=== PATIENT | male | born 1985 | race Caucasian/White ===

== ENCOUNTER 2024-04-22 08:57 | Outpatient (OUT) | payer OTHER, SELFPAY ==
[2024-04-22 09:35] LABS: Estimated Average Glucose 103 mg/dL; Glycohemoglobin A1C 5.2 % (4.5-6.2)
[2024-04-22 09:44] LABS: Basophils Absolute Auto 0.1 10^3/uL (0.0-0.1); Eosinophils Absolute Auto 0.3 10^3/uL (0.0-0.7); Eosinophils Percent Auto 3.5 % (0.9-7.0); Hematocrit 46.2 % (42.0-54.0); Hemoglobin 15.5 g/dL (14.0-18.0); Immature Granulocytes Abs Auto 0.03 10^3/uL (0.00-0.03); Immature Granulocytes Pct Auto 0.3 % (0.0-0.5); Lymphocytes Absolute Auto 3.1 10^3/uL (1.2-3.8); Lymphocytes Percent Auto 34.9 % (20.5-60.0); Mean Corpuscular HGB Conc 33.5 g/dL (29.9-35.2); Mean Corpuscular Hemoglobin 29.3 pg (25.9-34.0); Mean Corpuscular Volume 87.3 fL (80.0-94.0); Mean Platelet Volume 10.4 fL (9.5-13.5); Monocytes Absolute Auto 0.6 10^3/uL (0.3-0.8); Monocytes Percent Auto 6.2 % (1.7-12.0); Neutrophils Absolute Auto 4.8 10^3/uL (1.4-6.5); Neutrophils Percent Auto 54.1 % (43.0-75.0); Platelet Count 333 10^3/uL (150-450); Red Blood Count 5.29 10^6/uL (4.70-6.10); Red Cell Distribution Width 12.5 % (11.0-15.0); White Blood Count 8.8 10^3/uL (4.0-11.0)
[2024-04-22 10:05] LABS: Alanine Aminotransferase 29 U/L (16-63); Albumin Globulin Ratio 1.2; Albumin Level 4.1 g/dL (3.4-5.0); Alkaline Phosphatase 99 U/L (46-116); Aspartate Amino Transferase 17 U/L (15-37); BUN Creatinine Ratio 15.5; Bilirubin Direct 0.1 mg/dL (0.0-0.2); Bilirubin Total 0.5 mg/dL (0.2-1.0); Carbon Dioxide 28.3 mmol/L (21.0-32.0); Chloride 105 mmol/L (98-107); Chol HDL Ratio 3.8; Cholesterol 203 mg/dL (<=200); Estimated GFR (African America >60 (>=60); Estimated GFR (Non-African Ame >60 (>=60); Globulin 3.4 g/dL; Glucose 100 mg/dL (74-106); HDL Cholesterol 54 mg/dL (40-60); Potassium 4.3 mmol/L (3.5-5.1); Sodium 142 mmol/L (136-145); Thyroid Stimulating Hormone 1.115 uIU/mL (0.358-3.740); Total Protein 7.5 g/dL (6.4-8.2); Triglycerides 66 mg/dL (<=150); VLDL CHOLESTEROL 13.2 mg/dL
== END 2024-04-22 08:58 | disposition home or self-care (01) ==
LOC: LAB 09:02
PROVIDERS: PCP Family Medicine; Visit Provider Family Medicine
DX: Z00.00 Encounter for general adult medical examination without abnormal findings (principal)
CPT/HCPCS: 36415; 80048; 80061; 80076; 83036; 84443; 85025

== ENCOUNTER 2024-05-23 18:57 | Emergency (ER) | payer OTHER, SELFPAY ==
[2024-05-23 19:03] VITALS: BP 158/85; PULSE 102; TEMP 36.8; O2SAT 99; BMI 30.9
--- NOTE | 2024-05-23 19:12 | ED_ITS ---
HPI HPI - Extremity Injury (Upper) General Chief Complaint: Wound/Laceration Stated Complaint: LT HAND MIDDLE FINGER INJURY Time Seen by Provider: 05/23/24 19:03 Mode of arrival: walk-in Limitations: no limitations History of Present Illness HPI narrative: This 39-year-old male who is right-hand dominant presents for evaluation of a laceration to the left lateral middle finger. The patient was cutting vegetable s for dinner and accidentally cut himself with a knife. He has an approximately 1.5 cm flap type laceration at the lateral aspect of the distal end of the middle finger. The laceration is lateral to but not involving his fingernail. He is neurovascularly intact. He does not know the date of his last tetanus shot. Related Data Home Medications ?Medication ?Instructions ?Recorded ?Confirmed albuterol sulfate 90 mcg/actuation 2 puff inhalation Q6H PRN 05/23/24 05/23/24 aerosol inhaler shortness of breath or wheezing alprazolam 0.5 mg tablet 0.5 mg PO BID PRN anxiety 05/23/24 05/23/24 atomoxetine 40 mg capsule 40 mg PO DAILY 05/23/24 05/23/24 atomoxetine 40 mg capsule 40 mg PO DAILY 05/23/24 05/23/24 (Strattera) montelukast 10 mg tablet 10 mg PO DAILY 05/23/24 05/23/24 omeprazole 40 mg capsule,delayed 40 mg PO DAILY 05/23/24 05/23/24 release Allergies Allergy/AdvReac Type Severity Reaction Status Date / Time Penicillins AdvReac Intermediate Rash Verified 05/23/24 19:03 Opioid HPI Opioid Management Most Recent Pain and Opioid Data: Last Pain Scale 5 05/23/24 19:15 Review of Systems ROS0 Status of ROS 10 or more systems reviewed and unremark able except as noted in history and below Exam Narrative Exam Narrative: Vital signs and Nursing Notes reviewed: Patient is mildly hypertensive and tachycardic, he is not hypoxic with pulse ox of 99% on room air General: Awake, alert, oriented, no acute distress, lying comfortably on the stretcher HEENT: Normocephalic atraumatic, mucous membranes are moist and pink, eyes are clear Extremities: Moving all extremities, approximately 1.5 cm semicircular flap type laceration lateral to the fingernail on the distal end of the left middle finger. He is neurovascularly intact. There is no active bleeding. Laceration abuts but does not involve the fingernail Skin: Normal in appearance without rash,pallor, petechiae or purpura Neuro: No focal deficits Constitutional Vital Signs, click to edit/add: Last Vital Signs Temp 98.2 F 05/23/24 19:03 Pulse 102 H 05/23/24 19:03 Resp 102 H 05/23/24 19:03 BP 158/85 H 05/23/24 19:03 Pulse Ox 99 05/23/24 19:03 O2 Del Method Room Air 05/23/24 19:03 Course Vital Signs Vital signs: Vital Signs Temperature 98.2 F 05/23/24 19:03 Pulse Rate 102 H 05/23/24 19:03 Respiratory Rate 102 H 05/23/24 19:03 Blood Pressure 158/85 H 05/23/24 19:03 Pulse Oximetry 99 05/23/24 19:03 Oxygen Delivery Method Room Air 05/23/24 19:03 Temperature 98.2 F 05/23/24 19:03 Pulse Rate 102 H 05/23/24 19:03 Respiratory Rate 102 H 05/23/24 19:03 Blood Pressure 158/85 H 05/23/24 19:03 Pulse Oximetry 99 05/23/24 19:03 Oxygen Delivery Method Room Air 05/23/24 19:03 MDM - Extremity Injury (Upper) MDM Narrative Medical decision making narrative: This 39-year-old male who is right-hand dominant presents for evaluation of a left middle finger laceration that he sustained at home while cutting vegetables. He is neurovascularly intact. Tetanus was updated and the laceration was closed with4, 4-0 Ethilon sutures. He tolerated procedure well. Discharge Plan Discharge Stand Alone Forms: Work/School Release, Portal Instructions Chief Complaint: Wound/Laceration Clinical Impression: Laceration of finger of left hand Patient Disposition: Home, Self-Care Time of Disposition Decision: 19:45 Condition: Good Prescriptions / Home Meds: No Action atomoxetine [Strattera] 40 mg capsule 40 mg PO DAILY omeprazole 40 mg capsule,delayed release(DR/EC) 40 mg PO DAILY alprazolam 0.5 mg tablet 0.5 mg PO BID PRN (Reason: anxiety) montelukast 10 mg tablet 10 mg PO DAILY atomoxetine 40 mg capsule 40 mg PO DAILY albuterol sulfate 90 mcg/actuation HFA aerosol inhaler 2 puff INHALATION Q6H PRN (Reason: shortness of breath or wheezing) Print Language: Nepali Instructions: Care For Your Stitches (ED), Finger Laceration (ED) Additional Instructions: Sutures can be removed in 10 to 12 days. Keep your hand covered with a Band-Aid and use bacitracin 1-2 times a day. Referrals: Thomas Chi MD [Primary Care Provider] - 1 week Procedures ED Procedure Instructions Procedures Procedures: Procedure note: Laceration repair; the left middle finger was infiltrated with 1% lidocaine after it was soaked in warm water and Hibiclens. When anesthesia was obtained, the laceration was closed with 4, 4-0 Ethilon sutures with good wound edge approximation. A bacitracin dressing was placed by the nursing staff. Suture care and wound care instructions were given to the patient and his female operations support analyst.
[2024-05-23] MEDS: LIDOCAINE HCL 1% 100 MG/10 ML MDV INJ (19:26)
[2024-05-23] MEDS: ADACEL DIPH,PERTUSS(ACELL),TET VAC/PF 0.5 ML ADULT SYRINGE IM (19:26)
--- OUTSIDE RECORDS SUMMARY | 2024-05-23 19:43 | XMS_ITS | CCD ---
Author Organization [facility] Care Team Providers Care Roundsman Name Role Phone THOMAS ZARAGOZA Primary Care THOMAS Hackett Consulting [place] Bo PA-C, Mike Aragon Attending Unavail able THOMAS ZARAGOZA Primary Care Unavailmanjinder Bo PA-C, Mike Aragon Attending Unavail able Burt Haque Attending Unavailable THOMAS ZARAGOZA Primary Care Burt Vivas Admitting Unavailable Jamie Klein Unavailable DR THOMAS ZARAGOZA Admitting Unavailable MILA, DR THOMAS Rojas Attending Unavailable DR THOMAS ZARAGOZA Primary Care Unavailable DR THOMAS ZARAGOZA Consulting Unavailable Linh Daley Unavailable Thomas Zaragoza MD Primary Care Provider [phone] THOMAS ZARAGOZA Attending Unavailable THOMAS ZARAGOZA Attending Unavailable Allergies Allergy Classification Reported Allergen(s) Allergy Type Date of Onset Reaction(s) Facility (2 sources) Penicillins; Translations: [penicillins] Propensity to adverse reactions to drug (disorder) [facility] Repository (3 sources) Penicillin; Translations: [penicillin] Drug Allergy [facility] Repository Medications Current Medications Medication Drug Class(es) Dates Sig (Normalized) Sig (Original) [id number] 200 actuat albuterol 0.09 mg/actuat metered dose inhaler (1 source) beta2-Adrenergic Agonist take 2 puff(s) by inhalation every four hours for wheezing albuterol HFA 90 mcg/act inhaler Inhale 2 puffs every 4 (four) hours if needed for wheezing 0 Active ALPRAZolam 0.5 mg oral tablet (4 sources) Benzodiazepine Start: 11-01-2023 take 1 tablet by mouth three times daily as needed ALPRAZolam (Xanax) 0.5 MG tablet Indications: Anxiety disorder, unspecified , Anxiety state (CMS/HCC) TAKE 1 TABLET BY MOUTH 3 TIMES A DAY NEEDED 60 tablet 2 11/01/2023 Active take 1 tablet by ziggy th three times daily as needed for anxiety ALPRAZolam XR (Xanax XR) 0.5 MG 24 hr tablet Take 0.5 mg by mouth 3 (three) times a day as needed for anxiety Do not crush, chew, or split. 0 Active take 1 tablet by ziggy th three times daily as needed ALPRAZolam 0.5 MG TAKE 1 TABLET BY MOUTH THREE TIMES A DAY NEEDED Oral for 20 Days Active celecoxib 200 mg oral capsule (2 sources) Nonsteroidal Anti-inflammatory Drug take 1 capsule by mouth in the morning celecoxib (CeleBREX) 200 MG capsule Take 200 mg by mouth in the morning and 200 mg before bedtime. 0 Active ciprofloxacin 3 mg/ml ophthalmic solution (1 source) Quinolone Antimicrobial Start: 2022 take 2 drop(s) into the eye(s) every four hours Ciprofloxacin HCl 0.3 % 2 drops into affected eye Ophthalmic every 4 hrs for 7 days Oct, Active cyclobenzaprine hydrochloride 10 mg oral tablet (1 source) Muscle Relaxant take 5 mg by mouth three times daily as needed for muscle spasms cyclobenzaprine (Flexeril) 10 MG tablet Take 5 mg by mouth 3 (three) times a day as needed for muscle spasms 0 Active fluticasone propionate 0.05 mg/actuat metered dose nasal spray (1 source) Corticosteroid take 2 spray(s) nasal route every twenty-four hours in the morning fluticasone (Allergy Moran 24 Hour) 50 MCG/ACT nasal spray Administer 2 sprays into each nostril in the morning. Shake gently. Before first use, prime pump. After use, clean tip and replace cap.. 0 Active montelukast 10 mg oral tablet (3 sources) Leukotriene Receptor Antagonist take 1 tablet by mouth at bedtime montelukast (Singulair) 10 MG tablet Take 10 mg by mouth at bedtime 0 Active [place] 3 Fish Oil (2 sources) [place] 3 Fish Oil one oral daily Active omeprazole 40 mg delayed release oral capsule (3 sources) Proton Pump Inhibitor Start: 2023 take 1 capsule by mouth once daily omeprazole (PriLOSEC) [address] capsule Indications: Gastroesophageal reflux disease without esophagitis TAKE 1 CAPSULE BY MOUTH EVERY DAY 90 capsule 3 10/06/2023 Active take 1 capsule by mouth once mo ly Omeprazole 40 MG 1 capsule 30 minutes before morning meal Orally Once a day Active Completed/Discontinued Medications Medication Drug Class(es) Dates Sig (Normalized) Sig (Original) Ketorolac (2 sources) Nonsteroidal Anti-inflammatory Drug, Cyclooxygenase Inhibitor Start: 08-23-2017 Toradol per 15 mg Aug, 60 mg Problems Problem Classification Problem Date Documented Date Episodic/Chronic Anxiety disorders (2 sources) Anxiety disorder; Translations: [Anxiety disorder, unspecified] 10-31-2023 Chronic Inflammation; infection of eye (except that caused by tuberculosis or sexually transmitteddisease) (1 source) Other mucopurulent conjunctivitis, bilateral Episodic Spondylosis; intervertebral disc disorders; other back problems (5 sources) Displacement of cervical intervertebral disc; Translations: [Other cervical disc displacement, unspecified cervical region] Onset: 02-04-2022 Resolved: 02-04-2022 Chronic Results Test Name Value Interpretation Reference Range Facility CBC AUTO DIFFon 11-09-2022 BASO # 0.1 103/ul Normal 0.0-0.1 [facility] Comment on above: Performed By: #### C BC #### [facility] [address] [place] [address] Dr. Tato Siegel Basophils/100 WBC (Bld) 0.7 % Normal 0.2-2.0 [facility] Comment on above: Performed By: #### C BC #### [facility] [address] [place] [address] Dr. Tato Siegel EO # 0.2 103/ul Normal 0.0-0.7 [facility] Comment on above: Performed By: #### C BC #### [facility] [address] [place] [address] Dr. Tato Siegel Eosinophils/100 WBC (Bld) 2.2 % Normal 0.9-7.0 [facility] Comment on above: Performed By: #### C BC #### [facility] [address] [place] [address] Dr. Tato Siegel Erythrocyte distribution width (RBC) [Ratio] 12.5 % Normal 11.0-15.0 [facility] Comment on above: Performed By: #### C BC #### [facility] [address] [place] [address] Dr. Tato Siegel Hematocrit (Bld) [Volume fraction] 47.1 % Normal 42.0-54.0 [facility] Comment on above: Performed By: #### C BC #### [facility] [address] [place] [address] Dr. Tato Siegel Hemoglobin (Bld) [Mass/Vol] 16.0 g/dL Normal 14.0-18.0 [facility] Comment on above: Performed By: #### C BC #### [facility] [address] [place] [address] Dr. Tato Siegel IG # 0.05 10e3/ul Critically high 0.00-0.03 [facility] Comment on above: Performed By: #### C BC #### [facility] [address] [place] [address] Dr. Tato Siegel IG % 0.5 % Normal 0.0-0.5 [facility] Comment on above: Performed By: #### C BC #### [facility] [address] [place] [address] Dr. Tato Siegel LYMPH # 3.8 103/ul Normal 1.2-3.8 [facility] Comment on above: Performed By: #### C BC #### [facility] [address] [place] [address] Dr. Tato Siegel Lymphocytes/100 WBC (Bld) 35.4 % Normal 20.5-60.0 [facility] Comment on above: Performed By: #### C BC #### [facility] [address] [place] [address] Dr. Tato Siegel MANUAL DIFF REQ NO Normal [facility] Comment on above: Performed By: #### C BC #### [facility] [address] [place] [address] Dr. Tato Siegel MCH (RBC) [Entitic mass] 28.4 pg Normal 25.9-34.0 [facility] Comment on above: Performed By: #### C BC #### [facility] [address] [address] [address] Tato Siegel MCHC (RBC) [Mass/Vol] 34.0 g/dL Normal 29.9-35.2 [facility] Comment on above: Performed By: #### C BC #### [facility] [address] [address] [address] Tato Siegel MCV (RBC) [Entitic vol] 83.7 fL Normal 80.0-94.0 [facility] Comment on above: Performed By: #### C BC #### [facility] [address] [place] [address] Dr. Tato Siegel MONO # 0.7 103/ul Normal 0.3-0.8 [facility] Comment on above: Performed By: #### C BC #### [facility] [address] [place] [address] Dr. Tato Siegel Monocytes/100 WBC (Bld) 6.9 % Normal 1.7-12.0 [facility] Comment on above: Performed By: #### C BC #### [facility] [address] [place] [address] Dr. Tato Siegel NEUT # 5.8 103/ul Normal 1.4-6.5 [facility] Comment on above: Performed By: #### C BC #### [facility] [address] [place] [address] Dr. Tato Siegel Neutrophils/100 WBC (Bld) 54.3 % Normal 43.0-75.0 [facility] Comment on above: Performed By: #### C BC #### [facility] [address] [address] [address] Tato Siegel Platelet mean volume (Bld) [Entitic vol] 9.8 fL Normal 9.5-13.5 [facility] Comment on above: Performed By: #### C BC #### [facility] [address] [place] [address] Dr. Tato Siegel PLT 385 103/ul Normal 150-450 [facility] Comment on above: Performed By: #### C BC #### [facility] [address] [place] [address] Dr. Tato Siegel RBC 5.63 106/ul Normal 4.70-6.10 [facility] Comment on above: Performed By: #### C BC #### [facility] [address] [address] [address] Tato Siegel WBC 10.7 103/ul Normal 4.0-11.0 [facility] Comment on above: Performed By: #### C BC #### [facility] [address] [address] [address] Tato Siegel GLYCOHEMOGLOBIN A1Con 2022 ADA RECOMMENDATION SEE BELOW Normal [facility] Comment on above: Result Comment: ADA RECOMMENDED LIMIT 4.0 - 6.0 ADA THERAPEUTIC TARGET < 7.0 ACTION SUGGESTED > 7.0 Performed By: #### A 1C #### [facility] [address] [place] [address] Dr. Tato Siegel Glucose [Mass/Vol] 111 mg/dL Normal [facility] Comment on above: Performed By: #### A 1C #### [facility] [address] [place] [address] Dr. Tato Siegel HbA1c (Bld) [Mass fraction] 5.5 % Normal 4.5-6.2 [facility] Comment on above: Performed By: #### A 1C #### [facility] [address] [place] [address] Dr. Tato Siegel LIPID PROFILEon 11-09-2022 CHOL-HDL RATIO NORM SEE BELOW Normal [facility] Comment on above: Result Comment: 3.3 - 4.4 LOW RISK 4.4 - 7.1 AVERAGE RISK 7.1 - 11.0 MODERATE RISK >11.0 HIGH RISK Performed By: #### T SH, BMP, LIVER, LIPID #### [facility] [address] [place] [address] Dr. Tato Siegel Cholesterol [Mass/Vol] 220 mg/dL Critically high <=200 [facility] Comment on above: Performed By: #### T SH, BMP, LIVER, LIPID #### [facility] [address] [address] [address] Tato Siegel Cholesterol in HDL [Mass/Vol] 43 mg/dL Normal 40-60 [facility] Comment on above: Performed By: #### T SH, BMP, LIVER, LIPID #### [facility] [address] [address] [address] Tato Siegel Cholesterol in LDL [Mass/Vol] 147.2 mg/dL Normal [facility] Comment on above: Performed By: #### T SH, BMP, LIVER, LIPID #### [facility] [address] [address] [address] Tato Siegel Cholesterol.total/Ch olesterol in HDL [Mass ratio] 5.1 {ratio} Normal [facility] Comment on above: Performed By: #### T SH, BMP, LIVER, LIPID #### [facility] [address] [address] [address] Tato Siegel HDL NORMAL > or = 60 mg/dl - LO W CARDIOVASCULAR RISK <40 mg/dl - HIGH CARDIOVASCULAR RISK Normal [facility] Comment on above: Performed By: #### T SH, BMP, LIVER, LIPID #### [facility] [address] [address] [address] Tato Siegel LDL CALC NORMAL SEE BELOW Normal [facility] Comment on above: Result Comment: <100 mg/dl OPTIMAL 100 - 129 mg/dl NEAR OR ABOVE OPTIMAL 130 - 159 mg/dl BORDERLINE HIGH 160 - 189 mg/dl HIGH >190 mg/dl VERY HIGH Performed By: #### T SH, BMP, LIVER, LIPID #### [facility] [address] [address] [address] Tato Siegel Triglyceride [Mass/Vol] 149 mg/dL Normal <=150 [facility] Comment on above: Performed By: #### T SH, BMP, LIVER, LIPID #### [facility] [address] [place] [address] Dr. Tato Siegel VLDL CALC 29.8 mg/dL Normal [facility] Comment on above: Performed By: #### T SH, BMP, LIVER, LIPID #### [facility] [address] [address] [address] Tato Siegel LIVER PROFILEon 11-09-2022 Albumin [Mass/Vol] 4.4 g/dL Normal 3.4-5.0 [facility] Comment on above: Performed By: #### T SH, BMP, LIVER, LIPID #### [facility] [address] [address] [address] Tato Siegel Albumin/Globulin [Mass ratio] 1.1 {ratio} Normal [facility] Comment on above: Performed By: #### T SH, BMP, LIVER, LIPID #### [facility] [address] [address] [address] Tato Siegel ALP [Catalytic activity/Vol] 103 U/L Normal 46-116 [facility] Comment on above: Performed By: #### T SH, BMP, LIVER, LIPID #### [facility] [address] [place] [address] Dr. Tato Siegel ALT [Catalytic activity/Vol] 39 U/L Normal 16-63 [facility] Comment on above: Performed By: #### T SH, BMP, LIVER, LIPID #### [facility] [address] [place] [address] Dr. Tato Siegel AST [Catalytic activity/Vol] 19 U/L Normal 15-37 [facility] Comment on above: Performed By: #### T SH, BMP, LIVER, LIPID #### [facility] [address] [place] [address] Dr. Tato Siegel BILI, CONJUGATED 0.1 mg/dL Normal 0.0-0.2 [facility] Comment on above: Performed By: #### T SH, BMP, LIVER, LIPID #### [facility] [address] [address] [address] Tato Siegel Bilirubin [Mass/Vol] 0.4 mg/dL Normal 0.2-1.0 [facility] Comment on above: Performed By: #### T SH, BMP, LIVER, LIPID #### [facility] [address] [address] [address] Tato Siegel Globulin (S) [Mass/Vol] 3.9 g/dL Normal [facility] Comment on above: Performed By: #### T SH, BMP, LIVER, LIPID #### [facility] [address] [address] [address] Tato Siegel Protein [Mass/Vol] 8.3 g/dL Critically high 6.4-8.2 [facility] Comment on above: Performed By: #### T SH, BMP, LIVER, LIPID #### [facility] [address] [address] [address] Tato Siegel PROF CHEM 8 (BAS METB)on Anion gap [Moles/Vol] 13.5 mmol/L Normal [facility] Comment on above: Performed By: #### T SH, BMP, LIVER, LIPID #### [facility] [address] [place] [address] Dr. Tato Siegel Calcium [Mass/Vol] 9.4 mg/dL Normal 8.5-10.1 [facility] Comment on above: Performed By: #### T SH, BMP, LIVER, LIPID #### [facility] [address] [place] [address] Dr. Tato Siegel Chloride [Moles/Vol] 103 mmol/L Normal 98-107 [facility] Comment on above: Performed By: #### T SH, BMP, LIVER, LIPID #### [facility] [address] [place] [address] Dr. Tato Siegel CO2 [Moles/Vol] 25.6 mmol/L Normal 21.0-32.0 [facility] Comment on above: Performed By: #### T SH, BMP, LIVER, LIPID #### [facility] [address] [place] [address] Dr. Tato Siegel Creatinine [Mass/Vol] 0.86 mg/dL Normal 0.70-1.30 [facility] Comment on above: Performed By: #### T SH, BMP, LIVER, LIPID #### [facility] [address] [place] [address] Dr. Tato Siegel EGFR-AF CYPRIOT >60 Normal >=60 [facility] Comment on above: Performed By: #### T SH, BMP, LIVER, LIPID #### [facility] [address] [address] [address] Tato Siegel EGFR-NON AF CYPRIOT >60 Normal >=60 [facility] Comment on above: Performed By: #### T SH, BMP, LIVER, LIPID #### [facility] [address] [address] [address] Tato Siegel Glucose [Mass/Vol] 87 mg/dL Normal 74-106 [facility] Comment on above: Performed By: #### T SH, BMP, LIVER, LIPID #### [facility] [address] [address] [address] Tato Siegel Potassium [Moles/Vol] 4.1 mmol/L Normal 3.5-5.1 [facility] Comment on above: Performed By: #### T SH, BMP, LIVER, LIPID #### [facility] [address] [address] [address] Tato Siegel Sodium [Moles/Vol] 138 mmol/L Normal 136-145 [facility] Comment on above: Performed By: #### T SH, BMP, LIVER, LIPID #### [facility] [address] [address] [address] Tato Siegel Urea nitrogen [Mass/Vol] 14.0 mg/dL Normal 7.0-18.0 [facility] Comment on above: Performed By: #### T SH, BMP, LIVER, LIPID #### [facility] [address] [address] [address] Tato Siegel Urea nitrogen/Creatinine [Mass ratio] 16.3 mg/mg Normal [facility] Comment on above: Performed By: #### T SH, BMP, LIVER, LIPID #### [facility] [address] [address] [address] Tato Siegel TSHon 11-09-2022 TSH 1.333 uIU/mL Normal 0.358-3.740 [facility] Comment on above: Performed By: #### T SH, BMP, LIVER, LIPID #### [facility] [address] [address] [address] Tato Siegel Neurosurgery Office/Clinic N oteon 10-20-2021 Neurosurgery Office/Clinic Note Chief Complaint Patient here for neck pain History of Present Illness The purpose of this visit is to review the cervical mri and discuss treatment. Left arm pain and numbness and weakness continues. 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 No injury. Went to ER 09/21/21, given methylprednisolone injection and Medrol dose pack, no help. Went to PCP, taking cyclobenzaprine and nabumetone. Saw PT 09/24/21, referred here with left triceps weakness. Two weeks ago difficulty holding and using utensils on the left. Using therapy putty, seems to help with strength Has soft collar on, prescribed by PT, states helping his symptoms slightly No symptoms on right, no LE symptoms, no bladder or bowel issues. No diagnostic imaging Conservative treatment: Medrol pack, cyclobenzaprine, nabumetone PT x 1 visit, traction (made symptoms worse) Review of Systems General Weakness: Yes Cardiovascular EENMT Gastrointestinal Genitourinary Hematologic/Lymphatic Musculoskeletal Back pain: No Joint pain: Yes Joint stiffness: Yes Neurological Numbness: Yes Psychiatric Respiratory Skin Physical Exam Vitals & Measurements BP: 140/88 HT: 191 cm WT: 118.4 kg WT: 118.4 kg (Dosing) BMI: 32.46 Additional Vitals No qualifying data available. General: Alert and oriented, well nourished, no acute distress Eye: PERRL, EOMI, normal conjunctiva HENT: Normocephalic, clear tympanic membranes, normal hearing, moist oral mucosa, no scleral icterus, no sinus tenderness Neck: Supple, non-tender, no carotid bruits, no JVD, no lymphadenopathy Lungs: Clear to auscultation and percussion, non-labored respiration Heart: Normal rate, regular rhythm, no murmur, gallop or edema Abdomen: Soft, non-tender, non-distended, normal bowel sounds, no masses]. Musculoskeletal: [Normal range of motion and strength, no tenderness or swelling Skin: Skin is warm, dry and pink, no rashes or lesions Psychiatric: Cooperative, appropriate mood and affect Neurologic: EOMI, PERRLA, TML, FS, No drift 5/5 mae UE strength except 4+ left tricep 5/5 mae LE strength 2+ UE reflexes except 1+ left tri 2+ LE reflexes Clonus absent pos spurling sign on left 1. Cervical radiculopathy 2. Neck pain without injury Assessment: 1. neck pain and left arm pain, numbness and left tricep weakness 2. cervical mri: C6-C7: There is a left lateral recess and left foraminal disc extrusion measuring 5 mm in AP dimension,, which is on a backdrop of broad-based left paracentral and left foraminal disc bulge, which impinges on the left C8 nerve root within the left lateral recess. There is no C7 neural impingement. There is very mild rightward mass effect of the adjacent thecal sac. There is no cord compression. There is no myelomalacia. 3. cervical flex ex: no intersegmental instability 4. bmi 32.5 Plan: I recommend C6-7 ACDFF. Described risks included bleeding, infection, neurological injury, spinal cord injury, stroke, c5 palsy, csf leak, , medical complication, vocal change, swallowing difficulty, ptosis, hardware failure, continued pain and numbness, and need for further procedures or surgeries. He would like to proceed with surgery. Time Spent with the Patient I have personally spent 30 minutes on this date, directly related to today's patient visit, including pre and post visit work, for this date of service. Time listed does not include time spent on separately billable services. Problem List/Past Medical History Ongoing No qualifying data Historical Depression screening Extrinsic asthma without status asthmaticus Fall risk VICKI - Generalised anxiety disorder GERD without esophagitis Obesity Physical examination Rhinitis due to pollen allergy Procedure/Surgical History KNEE ARTHROSCOPY/SURGERY Medications ALPRAZolam 0.5 mg oral tablet, 0.5 mg= 1 tabs, Oral, TID celecoxib 200 mg oral capsule cyclobenzaprine 10 mg oral tablet, Not taking fluticasone 50 mcg/inh nasal spray montelukast 10 mg oral tablet, 10 mg= 1 tabs, Oral, Daily nabumetone 500 mg oral tablet, Not taking omeprazole 40 mg oral delayed release capsule, 40 mg= 1 caps, Oral, Daily ProAir HFA 90 mcg/inh inhalation aerosol, 2 puffs, q6hr, Not taking Allergies penicillins (Hives) Social History Alcohol Current Substance Abuse Denies All Tobacco Never (less than 100 in lifetime) Use:. Family History Diabetes: Mother. Hypertension: Mother and Father. Lung disease: Father. Diagnostic Results (10/07/2021 11:31 EST MRI Spine Cervical w/o Contrast) REPORT MR CERVICAL SPINE CLINICAL HISTORY:Acute cervical spine pain. Radiculopathy. Myelopathy. COMPARISON:None. CORRELATION: None. TECHNIQUE: T1, T2 and STIR sequences of the cervical spine was performed in the sagittal pl (more content not included)... Normal [facility] MRI Spine Cervical w/o Contr rahat 10-07-2021 MRI Spine Cervical w/o Contrast MR CERVICAL SPINE CLINICAL HISTORY:Acute cervical spine pain. Radiculopathy. Myelopathy. COMPARISON:None. CORRELATION: None. TECHNIQUE: T1, T2 and STIR sequences of the cervical spine was performed in the sagittal plane. T2-weighted sequences of the cervical spine with plain performed in the axial plane. No contrast was administered. CONTRAST:None. FINDINGS: 7 cervical vertebrae are visualized. There is maintenance of the cervical lordotic curvature. The vertebral body heights and spinal alignment are maintained. There is no acute fracture or spondylolisthesis. The intervertebral discs are preserved. The craniocervical junction and atlantoaxial joints are maintained. The bone marrow is normal. The visualized brainstem and cerebellum are unremarkable. The visualized spinal cord and brainstem is unremarkable. The prevertebral soft tissue is within normal limits. C2-C3: Normal. C3-C4: Normal. C4-C5: Normal. C5-C6: Normal. C6-C7: There is a left lateral recess and left foraminal disc extrusion measuring 5 mm in AP dimension,, which is on a backdrop of broad-based left paracentral and left foraminal disc bulge, which impinges on the left C8 nerve root within the left lateral recess. There is no C7 neural impingement. There is very mild rightward mass effect of the adjacent thecal sac. There is no cord compression. There is no myelomalacia. C7-T1: Normal. IMPRESSION: Left foraminal and left lateral recess disc extrusion at C6-C7, superimposed on a broad-based left paracentral and foraminal disc bulge, which impinges on the left C8 nerve root within the left lateral recess. No C7 neural impingement. There is very mild rightward mass effect on the thecal sac. No cord compression or myelomalacia. Final Dictated by: Ava Stallings DO Dictated DT/TM: 10/07/2021 12:12 pm Signed by: Ava Stallings DO Signed (Electronic Signature): 10/07/2021 12:25 pm (If Report Is Signed, Electronically Signed in Other Vendor System) Normal [facility] Neurosurgery Office/Clinic N oteon 10-01-2021 Neurosurgery Office/Clinic Note Chief Complaint Patient states being seen for neck into shoulder blades. 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 No injury. Went to ER 09/21/21, given methylprednisolone injection and Medrol dose pack, no help. Went to PCP, taking cyclobenzaprine and nabumetone. Saw PT 09/24/21, referred here with left triceps weakness. Two weeks ago difficulty holding and using utensils on the left. Using therapy putty, seems to help with strength Has soft collar on, prescribed by PT, states helping his symptoms slightly No symptoms on right, no LE symptoms, no bladder or bowel issues. No diagnostic imaging Conservative treatment: Medrol pack, cyclobenzaprine, nabumetone PT x 1 visit, traction (made symptoms worse) Review of Systems General Adult ROS Fatigue: Yes Weakness: Yes Cardiovascular Chest pain/pressure: Yes EENMT Hearing loss: No, but has some tinnitus he relates to the new medication prescribed Vision Changes: No Gastrointestinal Abdominal pain: No Constipation: No Diarrhea: No Heartburn: No Nausea: No Genitourinary Frequency: No Urgency: No Hematologic/Lymphatic Musculoskeletal Other Musculoskeletal: Yes Neurological Numbness: Yes Psychiatric Anxiety: Yes Depression: No Respiratory Cough: No Shortness_of_breath: No Snoring: No Wheezing: No Skin Rash: No Physical Exam Vitals & Measurements HR: 68 (Peripheral) BP: 130/76 HT: 191 cm WT: 117.2 kg WT: 117.2 kg (Dosing) BMI: 32.13 BMI: 32.13 Additional Vitals BP Position/Location: Sitting, Left arm General: [Alert and oriented, well nourished, no acute distress]. Eye: [EOMI, normal conjunctiva]. HENT: [Normocephalic, normal hearing, moist oral mucosa, no scleral icterus]. Neck: [Supple, non-tender, no lymphadenopathy]. Lungs: [Clear to auscultation, non-labored respiration]. Heart: [Normal rate, regular rhythm, no murmur, gallop or edema]. Abdomen: [Soft, non-tender, non-distended]. Musculoskeletal: [Normal range of motion]. Skin: [Skin is warm, dry and pink, no rashes or lesions]. Neurologic: [Awake, alert, and oriented X3, CN II-XII intact]. Psychiatric: [Cooperative, appropriate mood and affect]. Strength 5/5 lower extremities Strength 5/5 upper extremities Sensation slightly diminished left triceps, dorsal forearm, otherwise intact to light touch + Spurling test on the left No Arnold's Patellar reflexes brisk, no clonus Remaining reflexes 2+ Gait normal Assessment/Plan 1. Cervical radiculopathy 2. Neck pain without injury Plan: MRI cervical spine without contrast Follow up with us when MRI completed Concern for disc herniation given symptoms, HPI. Also concern that he had difficulty using utensils on the left initially, although this has improved. Will see him back in the office as soon as MRI complete Time Spent with the Patient I have personally spent 45 minutes on this date, directly related to today's patient visit, including pre and post visit work, for this date of service. Time listed does not include time spent on separately billable services. Problem List/Past Medical History Ongoing No qualifying data Historical Depression screening Extrinsic asthma without status asthmaticus Fall risk VICKI - Generalised anxiety disorder GERD without esophagitis Obesity Physical examination Rhinitis due to pollen allergy Procedure/Surgical History KNEE ARTHROSCOPY/SURGERY Medications ALPRAZolam 0.5 mg oral tablet, 0.5 mg= 1 tabs, Oral, TID cyclobenzaprine 10 mg oral tablet fluticasone 50 mcg/inh nasal spray montelukast 10 mg oral tablet, 10 mg= 1 tabs, Oral, Daily nabumetone 500 mg oral tablet omeprazole 40 mg oral delayed release capsule, 40 mg= 1 caps, Oral, Daily ProAir HFA 90 mcg/inh inhalation aerosol, 2 puffs, q6hr Allergies penicillins (Hives) Social History Alcohol Current Substance Abuse Denies All Tobacco Never (less than 100 in lifetime) Use:. Family History Diabetes: Mother. Hypertension: Mother and Father. Lung disease: Father. Electronically signed by ___ Mike Bo PA-C 10/01/21 12:24 EST [facility] Provider Letteron 10-01-2021 Provider Letter (Inserted Image. Yelitza ble to display) Thomas Zaragoza MD [address] [place] [address] Re: Arlyn Garvin Date of Visit: 10/01/2021 Dear Thomas Zaragoza, Thank you for your referral and allowing me to contribute to the care of your patient: Arlyn Garvin Attached is my office note where you will find my assessment and recommendations from our encounter. My office?s contact information: [facility] [address], [phone] Let me know if you have any questions or concerns. Sincerely, MILKA Louise Providers: The following document(s) were included in the letter: October 01, 2021 09:29:04 EST - (10/01/2021) Neurosurgery Office Visit Note [facility] Vital Signs Date Time Vital Sign Value Performing Clinician Facility 10-28-2022 10:25-0500 Body height 193.04 cm Linh Daley Other [facility] Other 10-28-2022 10:25-0500 Body mass index (BMI) [Ratio] 32.5 kg/m2 Linh Daley Other [facility] Other 10-28-2022 10:25-0500 Body temperature 98 [degF] Linh Daley Other [facility] Other 10-28-2022 10:25-0500 Body weight 121.11 kg Linh Daley Other [facility] Other 10-28-2022 10:25-0500 Respiratory rate 18 /min Linh Daley Other [facility] Other 10-28-2022 10:25-0500 SaO2% (BldA) [Mass fraction] 95 % Linh Daley Other [facility] Other 02-04-2022 15:00-0400 Body height 193.04 cm Jamie Grahamchkii Other [facility] Other 02-04-2022 15:00-0400 Body mass index (BMI) [Ratio] 32.5 kg/m2 Jamie Elschiki Other [facility] Other 02-04-2022 15:00-0400 Body weight 121.11 kg Jamie Klein Other [facility] Other Encounters Encounter Date Encounter Type Care Provider Facility Start: 05-10-2024 End: 05-10-2024 ambulatory THOMAS ZARAGOZA Not Available Start: 11-17-2023 End: 11-17-2023 ambulatory THOMAS ZARAGOZA Not Available Start: 10-31-2023 Refill Thomas Black Work Phone: [facility] Comment on above: Anxiety disorder, un specified; Anxiety state (CMS/[facility]) Start: 11-13-2022 Encounter for genera l adult medical examination without abnormal findings DR THOMAS ZARAGOZA [facility] Start: 11-09-2022 End: 11-10-[address] THOMAS ZARAGOZA Facility:[facility] Start: 11-09-2022 End: 11-10-2022 Encounter for general adult medical examination without abnormal findings DR THOMAS ZARAGOZA Facility:[facility] Start: 10-28-2022 End: 10-28-2022 ambulatory Linh Daley Other [facility] Other Start: 10-28-2022 Office outpatient vi sit 15 minutes Linh Daley [facility] Start: 02-04-2022 End: 02-04-2022 ambulatory Jamie Klein Other [facility] Other Start: 02-04-2022 Office outpatient ne w 45 minutes Jamie Klein [facility] Start: 10-20-2021 ambulatory Burt Haque Faci lity:[facility] Start: 10-20-2021 End: 10-21-2021 ambulatory THOMAS ZARAGOZA Facility:[facility] Start: 10-07-2021 End: 10-08-2021 [facility] Plan of Treatment Date Care Activity Detail Author Start: 11-17-2023 End: 11-17-2023 Patient encounter procedure 11/17/2023 7:15 AM EST Office Visit [facility] [address] [place] [id number] Thomas Zaragoza MD [address] [place] [phone] [facility] Start: 05-21-2023 Influenza vaccination Influenza Vacc ine (#1) [facility] Immunizations Immunization Date Immunization Notes Care Provider Fa cility 08-31-2022 influenza virus vacc ine, unspecified formulation Thomas Zaragoza MD Work Phone: [facility] Payers Date Payer Category Payer Unknown 1985 Unknown [id number] [id number]. [id number] 1987 Unknown [id number] 2.16. [id number] 1987 Unknown [id number] 2.16. [id number] 1987 Unknown [id number] [id number] 1987 Unknown [id number] [id number] [id number] 1987 Unknown [id number] [id number] 1959 Unknown [id number] Social History Date Type Detail Facility Unknown if ever smoked [facility] Other Start: 10-08-2023 Sex Assigned At [facility] Other Start: 10-08-2023 Tobacco smoking stat [facility] Never smoked tobacco [facility] Start: 10-08-2023 History of Social function [facility] Healthcare Start: 1985 Sex Assigned At Not on file [facility] Evaluation note 10-28-2022 Note Date & Type Note Facility 10-28-2022 Evaluation note Encounter Date Diagnosis Assessment Notes Oct, Hi-Nella eye disease of both eyes (ICD-10 - H10.023) Pt to take meds as prescribed to affected eye/s. Pt to use warm compress as directed. Advised good hand washing. Wash pillow cases. Pt advised to avoid close contact with others due to the contagiousness of this. Pt not to wear contacts for the next week. Glasses only. Throw out old contacts. Pt to f/u with pcp as needed for persistent or worsening symptoms. Pt understood and agreed to treatment plan. [facility] Other Evaluation note 02-04-2022 Note Date & Type Note Facility 02-04-2022 Evaluation note Encounter Date Diagnosis Assessment Notes January, Herniation of intervertebral disc at C6-C7 level (ICD-10 - M50.223) I have reviewed all imaging face to face with the patient and discussed management options with the patient extensively. Most of the visit was spent in counseling. He had been recommended to have some sort of cage type fusion operation back in the beginning of all of this. My recommendation would be that since he has made significant improvement it becomes a [id number] decision, and If he feels that he can tolerate and handle his current discomfort and he can follow this conservatively, he should. However if he were to either have recurrent or residual symptoms or wish to have surgical intervention for this I do not believe a fusion would be the best option for him given his age situation and the quality of the remaining spine. I basically feel he should have an anterior cervical discectomy and placement of cervical artificial disc or arthroplasty. This would preserve motion and reduce the risk of adjacent level disease by 60 to 70% which in a 37-year-old is fairly significant over the course of his life. [facility] Other Clinical Note 10-21-2021 Note Date & Type Note Facility 10-21-2021 Note Procedure: Flexion a nd extension and swimmer's lateral views of the cervical spine. Clinical History: Neck pain, left arm and finger numbness Comparison: None, MRI cervical spine 10/07/2021 Findings: Bones: No two view radiographic evidence for acute fracture, subluxation, or aggressive abnormality. C7 and T1 are not well visualized at flexion or extension, no subluxation at the swimmer's view. Intervertebral discs: Mild narrowing and endplate findings at C6-7. Facet joints: Grossly intact. Soft tissues: Unremarkable. IMPRESSION: 1. No subluxation. 2. Mild chronic degenerative disc disease at C6-7. Final Dictated by: Ant Denise MD Dictated DT/TM: 10/21/2021 12:17 pm Signed by: Ant Denise MD Signed (Electronic Signature): 10/21/2021 12:22 pm (If Report Is Signed, Electronically Signed in Other Vendor System) [facility] Evaluation note Note Date & Type Note Facility Evaluation note Diagnosis Anxiety disorder, unspecified Anxiety state ([facility]) Anxiety state, unspecified documented in this encounter [facility] History general Narrative - Reported Note Date & Type Note Facility History general Narrative - Reported Type Medical History Anxiety Medical History allergy induced asthma Surgical History knee arthroscopy [facility] Other Summary Purpose Family History No Family History Records FoundNo Family History Records FoundNo Family History Records Found Advance Directives No Advanced Directives Records FoundNo Advanced Directives Records FoundNo Advanced Directives Records Found Additional Source Comments (unrecognized sect ion and content) No Status Records FoundNo Status Records FoundNo Status Records Found INFORMATION SOURCE (unrecogn ized section and content) DATE CREATED AUTHOR 10/21/2021 [facility] DATE CREATED AUTHOR AUTHOR'S ORGANIZ ATION 11/14/2022 [facility] DATE CREATED AUTHOR AUTHOR'S ORGANIZ ATION 05/11/[address] [facility] d[facility] Special[facility] EPIC REASON FOR VISIT (unrecogniz ed section and content) Reason Comments Med Refill Care Teams (unrecognized sec tion and content) [place] Relationship Specialty Start Date End Date Thomas Zaragoza MD [address] [place] [phone] PCP - General Family Medicine 10/08/23 FOR RECORDS PERTAINING TO PATIENTS WHO ARE OR HAVE BEEN ENROLLED IN A CHEMICAL DEPENDENCY/SUBSTANCEABUSE PROGRAM, SOME INFORMATION MAY BE OMITTED. This clinical summary was aggregated from multiple sources. Caution should be exercised in using it in the provision of clinical care. This summary normalizes information from multiple sources, and as a consequence, information in this document may materially change the coding, format and clinical context of patient data. In addition, data may be omitted in some cases. CLINICAL DECISIONS SHOULD BE BASED ON THE PRIMARY CLINICAL RECORDS. [facility]. provides no warranty or guarantee of the accuracy or completeness of information in this document.
[2024-05-23] MEDS: BACITRACIN 0.9 GM PACKET 1 PACKET TOPICAL (19:52)
== END 2024-05-23 20:00 | disposition home or self-care (01) ==
LOC: ER 19:40
PROVIDERS: Emergency Provider Emergency Medicine; PCP Family Medicine
DX: S61.213A Laceration without foreign body of left middle finger without damage to nail, initial encounter (principal); Z23 Encounter for immunization; W26.0XXA Contact with knife, initial encounter
CPT/HCPCS: 12001; 90471; 90715; 99283

== ENCOUNTER 2025-04-18 11:09 | Outpatient (OUT) | payer OTHER, SELFPAY ==
--- OUTSIDE RECORDS SUMMARY | 2025-04-18 08:30 | XMS_ITS | Encounter Summary ---
Author Organization [facility] Address [address] [place] [address] Care Team Providers Care Learning Support Teacher Name Role Phone Thomas Chi MD Primary Care Provider [phone] Reason for Visit * Reason Comments Annual Exam wellness Encounter Details Date Type Department Care Team (Late st Contact Info) Description 04/18/2025 8:30 AM EDT Office Visit [facility] [address] [place] [address] Thomas Chi MD [address] [place] [address] Annual physical exam (Primary Dx) Social History Tobacco Use Types Packs/Day Years Used Date Smoking Tobacco: Never Smokeless Tobacco: Never Social Connection and Isolation Panel [NHANES] A nswer Date Recorded In a typical week, how many times do you talk on the phone with family, friends, or neighbors? Three times a week 11/15/2023 How often do you get togethe r with friends or relatives? Never 11/15/2023 How often do you attend chur ch or latter-day services? Patient declined 11/15/2023 Do you belong to any clubs o r organizations such as synagogue groups, unions, fraternal or athletic groups, or school groups? Patient declined 11/15/2023 How often do you attend meet ings of the clubs or organizations you belong to? Patient declined 11/15/2023 Are you , , di vorced, , never , or living with a partner? 11/15/2023 AUDIT-C Answer Date Recorded Q1: How often do you have a drink containing alc ohol? 2-4 times a month 11/15/2023 Q2: How many drinks containi ng alcohol do you have on a typical day when you are drinking? 3 or 4 11/15/2023 Q3: How often do you have si x or more drinks on one occasion? Less than monthly 11/15/2023 Overall Financial Resource Strain (CARDIA) Answe r Date Recorded How hard is it for you to pa y for the very basics like food, housing, medical care, and heating? Patient declined 11/15/2023 [facility] Occupat ional Health - Occupational Stress Questionnaire Answer Date Recorded Do you feel stress - tense, restless, nervous, or anxious, or unable to sleep at night because your mind is troubled all the time - these days? To some extent 11/15/2023 Exercise Vital Sign Answer Date Recorde d On average, how many days pe r week do you engage in moderate to strenuous exercise (like a brisk walk)? 5 days 11/15/2023 On average, how many minutes do you engage in exercise at this level? 60 min 11/15/2023 Hunger Vital Sign Answer Date Recorded Within the past 12 months, y ou worried that your food would run out before you got the money to buy more. Patient declined Within the past 12 months, t he food you bought just didn't last and you didn't have money to get more. Patient declined PRAPARE - Transportation Answer Date Re corded In the past 12 months, has l ack of transportation kept you from medical appointments or from getting medications? No 10/22 In the past 12 months, has l ack of transportation kept you from meetings, work, or from getting things needed for daily living? No 11/15/2023 Housing Stability Vital Sign Answer Leland e Recorded In the last 12 months, was t here a time when you were not able to pay the mortgage or rent on time? Patient declined 11/15/19 24 In the last 12 months, how many places have you lived? 1 11/15/2023 In the last 12 months, was t here a time when you did not have a steady place to sleep or slept in a detention (including now)? No 11/15/2023 Sex and Gender Information Value Date Recorded Sex Assigned at Not on file Legal Sex Male 11:32 AM EDT Gender Identity Not on file Sexual Orientation Not on file Travel History Travel Start Travel End [place] 03/27/2025 04/15/2025 documented as of this encounter Last Filed Vital Signs Vital Sign Reading Time Taken Comments Blood Pressure 128/76 04/18/2025 8:44 AM EDT Pulse 75 04/18/2025 8:44 AM EDT Temperature 36.6 C (97.8 F) 04/18/2025 8:44 AM EDT Respiratory Rate 18 04/18/2025 8:44 AM EDT Oxygen Saturation 98% 04/18/2025 8:44 AM EDT Inhaled Oxygen Concentration - - Weight 109 kg (240 lb) 04/18/2025 8:44 AM EDT Height 193 cm (6' 4 ) 04/18/2025 8:44 AM EDT Body Mass Index 29.21 04/18/2025 8:44 AM EDT documented in this encounter Progress Notes * Thomas Chi MD - 04/18/2025 9:33 AM EDTAssociated Problem(s): Annual physical exam Due for labs. Discussed proper diet and regular aerobic exercise. Need aerobic exercise 5-6 days a week for 30 minutes at a time. Smaller portions and limit total calories. Colonoscopy after age 45. Tetanus every 10 years. Advised not to smoke. * Thomas Chi MD - 04/18/2025 8:30 AM EDT Images from the original note were not included. Subjective Patient ID: Darnell Garvin is a 40 y.o. male who presents for Annual Exam (wellness). Presents for annual PE. Overall doing well. Weight down 4 pounds in the past year. Active and exercises several days a week. Lifts weights and runs. Tries to watch diet and eat healthy. Increased fruits and vegetables. Smaller portions and limits snacking. Tries to limit total daily calories. Due for labs and needs form completed for work. C/o fatigue. Tired all the time and often not rested. At times has to force self to exercise. Concerned of low testosterone. Review of Systems Constitutional: Negative for fatigue. Respiratory: Negative for cough, shortness of breath and wheezing. Cardiovascular: Negative for chest pain and palpitations. Gastrointestinal: Negative for abdominal pain, diarrhea, nausea and vomiting. Genitourinary: Negative for dysuria. Objective Physical Exam Constitutional: General: He is not in acute distress. Appearance: Normal appearance. HENT: Head: Normocephalic. Right Ear: Tympanic membrane and ear canal normal. Left Ear: Tympanic membrane and ear canal normal. Eyes: Extraocular Movements: Extraocular movements intact. Pupils: Pupils are equal, round, and reactive to light. Cardiovascular: Rate and Rhythm: Normal rate and regular rhythm. Heart sounds: No murmur heard. No friction rub. No gallop. Pulmonary: Breath sounds: Normal breath sounds. No wheezing, rhonchi or rales. Abdominal: General: Bowel sounds are normal. There is no distension. Palpations: Abdomen is soft. Tenderness: There is no abdominal tenderness. There is no guarding or rebound. Musculoskeletal: General: Normal range of motion. Left lower leg: No edema. Neurological: General: No focal deficit present. Mental Status: He is alert. Cranial Nerves: No cranial nerve deficit. Deep Tendon Reflexes: Reflexes normal. Assessment/Plan Problem List Items Addressed This Visit Annual physical exam - Primary Due for labs. Discussed proper diet and regular aerobic exercise. Need aerobic exercise 5-6 days a week for 30 minutes at a time. Smaller portions and limit total calories. Colonoscopy after age 45. Tetanus every 10 years. Advised not to smoke. Relevant Orders Testosterone Basic metabolic panel CBC and differential Hepatic function panel Lipid panel TSH Hemoglobin A1c documented in this encounter Plan of Treatment Upcoming Encounters Date Type Department Care Team (Late st Contact Info) Description 10/22/2025 8:00 AM EST Office Visit [facility] [address] [place] [address] Thomas Chi MD [address] [place] [address] Scheduled Orders Name Type Priority Associated Diagnoses Orde r Schedule Testosterone Lab Routine Annual physical exam Expected: 04/18/2025 (Approximate), Expires: 04/18/2026 Basic metabolic panel Lab Routine Annual physical exam Expected: 04/18/2025 (Approximate), Expires: 04/18/2026 CBC and differential Lab Routine Annual physical exam Expected: 04/18/2025 (Approximate), Expires: 04/18/2026 Hepatic function panel Lab Routine Annual physical exam Expected: 04/18/2025 (Approximate), Expires: 04/18/2026 Lipid panel Lab Routine Annual physical exam Expected: 04/18/2025 (Approximate), Expires: 04/18/2026 TSH Lab Routine Annual physical exam Expected: 04/18/2025 (Approximate), Expires: 04/18/2026 Hemoglobin A1c Lab Routine Annual physical exam Expected: 04/18/2025 (Approximate), Expires: 04/18/2026 documented as of this encounter Visit Diagnoses Diagnosis Annual physical exam- Primary Routine general medical examination at a health care facility documented in this encounter Care Teams Learning Support Teacher Relationship Specialty Start Date End Date Thomas Chi MD [address] [place] [address] PCP - General Family Medicine 10/08/23 documented as of this encounter
--- OUTSIDE RECORDS SUMMARY | 2025-04-18 11:13 | XMS_ITS | Clinical Summary ---
Author Organization [facility] Healthcare Address [address] [place] [address] Care Team Providers Care Fireworks Assembler Name Role Phone Thomas Chi MD Primary Care Provider [phone] Allergies Active Allergy Reactions Criticality Noted Date Comments Penicillins Hives 10/08/2023 Medications fluticasone (Allergy [place] 24 Hour) 50 MCG/ACT nasal spray Administer 2 sprays into each nostril in the morning. Shake gently. Before first use, prime pump. After use, clean tip and replace cap.. Active albuterol HFA 90 mcg/act inhaler Inhale 2 puffs every 4 (four) hours if needed for wheezing Active omeprazole (PriLOSEC) [address] capsuleIndication s:Gastroesophagea l reflux disease without esophagitis TAKE 1 CAPSULE BY MOUTH EVERY DAY 90 capsule 3 10/10/19 25 Active ALPRAZolam (Xanax) 0.5 MG tabletIndications :Anxiety disorder, unspecified,Anxie ty state TAKE 1 TABLET BY MOUTH 3 TIMES A DAY NEEDED FOR ANXIETY FOR UP TO 20 DAYS 60 tablet 1 02/07/20 25 Active montelukast (Singulair) 10 MG tabletIndications :Chronic allergic rhinitis due to pollen TAKE 1 TABLET BY MOUTH EVERYDAY AT BEDTIME 90 tablet 5 03/08/20 25 Active amphetamine-dextr oamphetamine XR (Adderall XR) 20 MG 24 hr capsuleIndication s:Attention deficit disorder (ADD) without hyperactivity Take 1 capsule (20 mg) by mouth Daily Do not crush or chew. 30 capsule 03/20/20 25 025 Active amphetamine-dextr oamphetamine XR (Adderall XR) 20 MG 24 hr capsuleIndication s:Attention deficit disorder (ADD) without hyperactivity Take 1 capsule (20 mg) by mouth Daily Do not crush or chew. 30 capsule 02/14/20 25 025 Discontin ued(Reord er) Active Problems Problem Noted Date Diagnosed Date Plantar fasciitis of right foot 10/11/2024 Assessment & Plan (10/11/2024 8:13 AM EST): History and exam suggestive plantar fasciitis. Start prednisone x 5 days for inflammation and pain. Handout with stretches to patient and ice at end of day. Discussed importance of proper supportive shoes. If continue to have problems will need PT and x-ray. May need podiatry for injections. Continue meds as prescribed. If develop new or worsening symptoms contact office. Attention deficit disorder (ADD) without hyperac tivity 05/10/2024 Assessment & Plan (11/13/2024 9:09 AM EST): Symptoms tolerable with adderall and continue at current dose. Assessment & Plan (10/11/2024 8:13 AM EST): Medication seems to wear off and c/o side effects. Add wellbutrin to help with symptoms and reassess in 1 month. Assessment & Plan (07/12/2024 8:35 AM EDT): Symptoms controlled with adderall and continue at current dose. Assessment & Plan (05/31/2024 8:50 AM EDT): Symptoms improved but side effects from strattera and stop. Try adderall. Assessment & Plan (05/10/2024 7:58 AM EDT): History consistent with ADD and start strattera. Cervical disc herniation 11/17/2023 Assessment & Plan (11/17/2023 7:55 AM EST): No pain and continue ROM exercises and increased activity. Generalized anxiety disorder 11/17/2023 Assessment & Plan (11/13/2024 9:09 AM EST): Occasional symptoms and use xanax PRN. Assessment & Plan (10/11/2024 8:13 AM EST): Occasional symptoms and use xanax PRN. Assessment & Plan (07/12/2024 8:36 AM EDT): Occasional symptoms and use xanax PRN. Assessment & Plan (05/31/2024 8:51 AM EDT): Occasional symptoms and use xanax PRN. Assessment & Plan (05/10/2024 7:59 AM EDT): Occasional symptoms and use xanax PRN. Assessment & Plan (11/17/2023 7:56 AM EST): Occasional symptoms and use xanax PRN. Gastroesophageal reflux disease 11/17/2023 Assessment & Plan (11/17/2023 7:56 AM EST): Symptoms controlled with omeprazole and continue. Mild intermittent asthma without complication Assessment & Plan (11/17/2023 7:56 AM EST): Mild SOB with exertion and use albuterol PRN. Chronic allergic rhinitis due to pollen 11/17/19 Assessment & Plan (11/17/2023 7:56 AM EST): Symptoms controlled with medication and continue. Obesity (BMI 30-39.9) 11/17/2023 Annual physical exam 11/17/2023 Assessment & Plan (04/18/2025 9:33 AM EDT): Due for labs. Discussed proper diet and regular aerobic exercise. Need aerobic exercise 5-6 days a week for 30 minutes at a time. Smaller portions and limit total calories. Colonoscopy after age 45. Tetanus every 10 years. Advised not to smoke. Assessment & Plan (05/10/2024 7:58 AM EDT): Reviewed labs. Discussed proper diet and regular aerobic exercise. Need aerobic exercise 5-6 days a week for 30 minutes at a time. Smaller portions and limit total calories. Colonoscopy after age 45. Tetanus every 10 years. Advised not to smoke. Discussed daily Aspirin therapy. Encounters Date Type Department Care Team Description 04/18/2025 8:30 AM EDT Office Visit [facility] [address] [place] [address] Thomas Chi MD Annual physical exam (Primary Dx) 04/18/2025 Bamboo flowsheet [facility] [address] [place] [address] Thomas Chi MD 04/18/2025 Travel 03/20/2025 Refill [facility] [address] [place] [address] Thomas Chi MD Attention deficit disorder (ADD) without hyperactivity 03/08/2025 Refill [facility] [address] [place] [address] Thomas Chi MD Chronic allergic rhinitis due to pollen 02/13/2025 Refill [facility] [address] [place] [address] Thomas Chi MD Attention deficit disorder (ADD) without hyperactivity 02/04/2025 Refill [facility] [address] [place] [address] Thomas Chi MD Anxiety disorder, unspecified; Anxiety state from Last 3 Months Family History Medical History Relation Name Comments Hypertension Father Respiratory Disorder Father Hypertension Mother Relation Name Status Comments Father Mother Social History Tobacco Use Types Packs/Day Years Used Date Smoking Tobacco: Never Smokeless Tobacco: Never Tobacco Cessation:Counseling Given: Not Answered Social Connection and Isolation Panel [NHANES] A nswer Date Recorded In a typical week, how many times do you talk on the phone with family, friends, or neighbors? Three times a week 11/15/2023 How often do you get togethe r with friends or relatives? Never 11/15/2023 How often do you attend chur ch or confucianism services? Patient declined 11/15/2023 Do you belong to any clubs o r organizations such as confucianist groups, unions, fraternal or athletic groups, or [...] medical care, and heating? Patient declined 11/15/2023 [facility] - Occupational Stress Questionnaire Answer Date Recorded [...] place to sleep or slept in a m[facility]p (including now)? No 11/15/2023 Sex and Gender Information Value Date Recorded Sex Assigned at Not on file Legal Sex Male 11:32 AM EDT Gender Identity Not on file Sexual Orientation Not on file Travel History Travel Start Travel End [place] 03/27/2025 04/15/2025 Last Filed Vital Signs Vital Sign Reading [...] Mass Index 29.21 04/18/2025 8:44 AM EDT Plan of Treatment Upcoming Encounters Date Type Department Care Team (Late st Contact Info) Description 10/22/2025 8:00 AM EST Office Visit [facility] [address] [place] [address] Thomas Chi MD [address] [place] [address] Health Maintenance Due Date Last Done Comments Influenza Vaccine (#1) 2025 2, 07/02/2021, 06/21/2020, Additional history exists Insurance [employer] Care Teams Fireworks Assembler Relationship Specialty Start Date End Date Thomas Chi MD [address] [place] [address] PCP - General Family Medicine 10/08/23
--- OUTSIDE RECORDS SUMMARY | 2025-04-18 11:13 | XMS_ITS | Clinical Summary ---
Author Organization [employer] [facility] tem Address [id number] [address] [place] [address] Care Team Providers Care Recruiting Coordinator Name Role Phone Unavailable Primary Care Provider Unavailabl e Social History Tobacco Use Types Packs/Day Years Used Date Smoking Tobacco: Never Assessed Childcare Answer Date Recorded Childcare Unknown 03/01/2019 Employment Answer Date Recorded Employment Unknown 03/01/2019 Purpose - Life Answer Date Recorded Purpose and direction in life Unknown Sex and Gender Information Value Date Recorded Sex Assigned at Not on file Legal Sex Male 11:43 AM EDT Gender Identity Not on file Sexual Orientation Not on file Plan of Treatment Not on file Medical Devices Not on file Insurance * Guarantor: Darnell Garvin Account Type Relation to Patient Date of Phone Billing Address Personal/Family Self [address] [facility] [address] [place] [address] [employer]
--- OUTSIDE RECORDS SUMMARY | 2025-04-18 11:13 | XMS_ITS | Encounter Summary ---
Author Organization [facility] Address [address] [facility] [place] [address] Care Team Providers Care Carton Forming Machine Operator Name Role Phone Thomas Chi MD Primary Care Provider [phone] Encounter Details Date Type Department Care Team (Latest Contact Info) Description 04/18/2025 Travel Social History Tobacco Use Types Packs/Day Years [...] often do you attend chur ch or spiritism services? Patient declined 11/15/2023 Do you belong to any clubs o r organizations such as christian groups, unions, fraternal or athletic groups, or [...] medical care, and heating? Patient declined 11/15/2023 [facility] - Occupational Stress [...] place to sleep or slept in a care home (including now)? No 11/15/2023 Sex and Gender Information Value Date Recorded Sex Assigned at Not on file Legal Sex Male 11:32 AM EDT Gender Identity Not on file Sexual Orientation Not on file Travel History Travel Start Travel End [place] 03/27/2025 04/15/2025 documented as of this encounter Plan of Treatment Upcoming Encounters Date Type Department Care Team (Late st Contact Info) Description 10/22/2025 8:00 AM EST Office Visit [facility] [address] [place] [address] Thomas Chi MD [address] [place] [phone] documented as of this encounter Visit Diagnoses Not on filedocumented in this encounter Care Teams Carton Forming Machine Operator Relationship Specialty Start Date End Date Thomas Chi MD [address] [place] [address] PCP - General Family Medicine 10/08/23 documented as of this encounter
--- OUTSIDE RECORDS SUMMARY | 2025-04-18 11:13 | XMS_ITS | Encounter Summary ---
Author Organization [facility] Address [address] [place] [address] Care Team Providers Care Website Developer Name Role Phone Thomas Chi MD Primary Care Provider [phone] Encounter Details Date Type Department Care Team (Late st Contact Info) Description 04/18/[address] [facility] [address] [place] [phone] Thomas Chi MD [address] [place] [phone] Social History Tobacco Use Types Packs/Day Years [...] often do you attend chur ch or methodist services? Patient declined 11/15/2023 Do you belong to any clubs o r organizations such as islam groups, unions, fraternal or athletic groups, or [...] medical care, and heating? Patient declined 11/15/2023 [facility] - Occupational Stress [...] place to sleep or slept in a nursing home (including now)? No 11/15/2023 Sex and Gender Information Value Date Recorded Sex Assigned at Not on file Legal Sex Male 11:32 AM EDT Gender Identity Not on file Sexual Orientation Not on file Travel History Travel Start Travel End [place] 03/27/2025 04/15/2025 documented as of this encounter Plan of Treatment Upcoming Encounters Date Type Department Care Team (Late st Contact Info) Description 10/22/2025 8:00 AM EST Office Visit [facility] [address] [place] [address] Thomas Chi MD [address] [place] [address] documented as of this encounter Visit Diagnoses Not on filedocumented in this encounter Care Teams Website Developer Relationship Specialty Start Date End Date Thomas Chi MD [address] [place] [phone] PCP - General Family Medicine 10/08/23 documented as of this encounter
--- OUTSIDE RECORDS SUMMARY | 2025-04-18 11:30 | XMS_ITS | CCD ---
Author Organization [facility] InformOn license of [facility] Care Team Providers Care Composing Room Supervisor Name Role Phone THOMAS ZARAGOZA Primary Care UnavailTHOMAS Solares Consulting Unavailmanjinder Bo PA-C, Mike Aragon Attending Unavail able THOMAS ZARAGOZA Primary Care Unavailmanjinder Bo PA-C, Mike Aragon Attending Unavail able Burt Haque Attending Unavailable THOMAS ZARAGOZA Primary Care UnavailBurt Drew Admitting Unavailable Jamie Klein Unavailable DR THOMAS ZARAGOZA Admitting Unavailable MILA, DR THOMAS Rojas Attending Unavailable MILA, DR THOMAS Rojas Primary Care Unavailable MILA, DR THOMAS Rojas Consulting Unavailable Linh Daley Unavailable Thomas Zaragoza MD Primary Care Provider THOMAS ZARAGOZA Attending Unavailable MILA, THOMAS Attending Unavailable MILA, THOMAS Attending Unavailable MILA, THOMAS Attending Unavailable MILA, THOMAS Attending Unavailable NADEREDonal, THOMAS Attending Unavailable Allergies Allergy Classification Reported Allergen(s) Allergy Type Date of Onset Reaction(s) Facility (20 sources) Penicillins; Translations: [penicillins] Propensity to adverse reactions to drug (disorder) 4 [facility] Repository (3 sources) Penicillin; Translations: [penicillin] Drug Allergy [facility] Repository Medications Current Medications Medication Drug Class(es) Dates Sig (Normalized) Sig (Original) [id number] 200 actuat albuterol 0.09 mg/actuat metered dose inhaler (20 sources) beta2-Adrenergic Agonist take 2 puff(s) by inhalation every four hours for wheezing albuterol HFA 90 mcg/act inhaler Inhale 2 puffs every 4 (four) hours if needed for wheezing Active ALPRAZolam 0.5 mg oral tablet (20 sources) Benzodiazepine Start: 02-06-2025 take 1 tablet by mouth three times daily as needed for anxiety ALPRAZolam (Xanax) 0.5 MG tablet Indications: Anxiety disorder, unspecified , Anxiety state TAKE 1 TABLET BY MOUTH 3 TIMES A DAY NEEDED FOR ANXIETY FOR UP TO 20 DAYS 60 tablet 1 02/06/2025 Active Start: 03-29-2024 End: 08-03-2024 take 1 tablet by mouth three times daily as needed ALPRAZolam (Xanax) 0.5 MG tablet Indications: Anxiety disorder, unspecified , Anxiety state (CMS/HCC) TAKE 1 TABLET BY MOUTH THREE TIMES A DAY NEEDED 60 tablet 1 08/03/2024 Active Start: 11-01-2023 take 1 tablet by ziggy th three times daily as needed ALPRAZolam (Xanax) [...] DAY NEEDED Oral for 20 Days Active 24 hr amphetamine aspartate 5 mg / amphetamine sulfate 5 mg / dextroamphetamine saccharate 5 mg / dextroamphetamine sulfate 5 mg extended release oral capsule (20 sources) Central Nervous System Stimulant Start: 12-26-2024 End: 04-19-2025 take 1 capsule by mouth once daily amphetamine-dextroamphetamine XR (Adderall XR) 20 MG 24 hr capsule Indications: Attention deficit disorder (ADD) without hyperactivity Take 1 capsule (20 mg) by mouth Daily Do not crush or chew. 30 capsule 03/20/2025 04/19/2025 Active Start: 05-31-2024 End: 12-08-2024 take 1 capsule by mouth once daily amphetamine-dextroamphetamine XR (Addera ll XR) 20 MG 24 hr capsule Indications: Attention deficit disorder (ADD) without hyperactivity Take 1 capsule (20 mg) by mouth Daily Do not crush or chew. 30 capsule 11/08/2024 12/08/2024 Active atomoxetine 40 mg oral capsule (9 sources) Norepinephrine Reuptake Inhibitor Start: 06-07-2024 End: 07-12-2024 take 1 capsule by mouth once daily atomoxetine (Strattera) 40 MG capsule Indications: Attention deficit disorder (ADD) without hyperactivity Take 1 capsule (40 mg) by mouth Daily Swallow capsule whole; do not open. If opened accidentally, do not touch eyes; wash hands immediately (product is an eye irritant). 30 capsule 3 06/07/2024 07/12/2024 Discontinued Start: 05-10-2024 End: 05-31-2024 take 1 capsule by mouth once daily atomoxetine (Strattera) 40 MG capsule Indications: Attention deficit disorder (ADD) without hyperactivity Take 1 capsule (40 mg) by mouth Daily Swallow capsule whole; do not open. If opened accidentally, do not touch eyes; wash hands immediately (product is an eye irritant). 30 capsule 3 05/10/2024 05/31/2024 Discontinued 24 hr buPROPion hydrochloride 150 mg extended release oral tablet (6 sources) Aminoketone Start: 11-02-2024 End: 11-13-2024 take 1 tablet by mouth once daily in the morning buPROPion XL (Wellbutrin XL) 150 MG 24 hr tablet Indications: Attention deficit disorder (ADD) without hyperactivity TAKE 1 TABLET BY MOUTH ONCE EVERY MORNING *DO NOT CRUSH/CHEW/SPLIT* 90 tablet 1 11/02/2024 11/13/2024 Discontinued Start: 10-11-2024 take 1 tablet by ziggy th every twenty-four hours in the morning buPROPion XL (Wellbutrin XL) 150 MG 24 hr tablet Indications: Attention deficit disorder (ADD) without hyperactivity Take 1 tablet (150 mg) by mouth in the morning. Do not crush, chew, or split.. 30 tablet 2 10/11/2024 Active Start: 10-11-2024 take 1 tablet by ziggy th every twenty-four hours in the morning buPROPion XL (Wellbutrin XL) 150 MG 24 hr tablet Indications: Attention deficit disorder (ADD) without hyperactivity Take 1 tablet (150 mg) by mouth in the morning. Do not crush, chew, or split.. 30 tablet 2 10/11/2024 Active celecoxib 200 mg oral capsule (5 sources) Nonsteroidal Anti-inflammatory Drug End: 05-10-2024 take 1 capsule by mouth in the morning celecoxib (CeleBREX) 200 MG capsule Take 200 mg by mouth in the morning and 200 mg before bedtime. 05/10/2024 Discontinued ciprofloxacin 3 mg/ml ophthalmic solution (1 source) Quinolone Antimicrobial Start: 10-28-2022 take 2 drop(s) into the eye(s) every four hours Ciprofloxacin HCl 0.3 % 2 drops into affected eye Ophthalmic every 4 hrs for 7 days Oct, Active cyclobenzaprine hydrochloride 10 mg oral tablet (4 sources) Muscle Relaxant End: 05-10-2024 take 5 mg by mouth three times daily as needed for muscle spasms cyclobenzaprine (Flexeril) 10 MG tablet Take 5 mg by mouth 3 (three) times a day as needed for muscle spasms 05/10/2024 Discontinued fluticasone propionate 0.05 mg/actuat metered dose nasal spray (20 sources) Corticosteroid take 2 spray(s) nasal route every twenty-four hours in the morning fluticasone (Allergy [place] 24 Hour) 50 MCG/ACT nasal spray Administer 2 sprays into each nostril in the morning. Shake gently. Before first use, prime pump. After use, clean tip and replace cap.. Active montelukast 10 mg oral tablet (20 sources) Leukotriene Receptor Antagonist Start: 03-08-2025 take 1 tablet by mouth once daily at bedtime montelukast (Singulair) 10 MG tablet Indications: Chronic allergic rhinitis due to pollen TAKE 1 TABLET BY MOUTH EVERYDAY AT BEDTIME 90 tablet 5 03/08/2025 Active Start: 02-29-2024 take 1 tablet by ziggy th once daily at bedtime montelukast (Singulair) 10 MG tablet Indications: Chronic allergic rhinitis due to pollen TAKE 1 TABLET BY MOUTH EVERYDAY AT BEDTIME 90 tablet 5 02/29/2024 Active take 1 tablet by ziggy th at bedtime montelukast (Singulair) 10 MG tablet Take 10 mg by mouth at bedtime 0 Active [place] 3 Fish Oil (2 sources) [place] 3 Fish Oil one oral daily Active omeprazole 40 mg delayed release oral capsule (20 sources) Proton Pump Inhibitor Start: take 1 capsule by mouth once daily omeprazole (PriLOSEC) [address] capsule Indications: Gastroesophageal reflux disease without esophagitis TAKE 1 CAPSULE BY MOUTH EVERY DAY 90 capsule 3 10/10/2024 Active Start: 10-06-2023 take 1 capsule by mo uth once daily omeprazole (PriLOSEC) [address] capsule Indications: Gastroesophageal reflux disease without esophagitis TAKE 1 CAPSULE BY MOUTH EVERY DAY 90 capsule 3 10/06/2023 Active take 1 capsule by mo ut once daily Omeprazole 40 MG 1 capsule 30 minutes before morning meal Orally Once a day Active predniSONE 50 mg oral tablet (2 sources) Start: 10-11-2024 End: 10-17-2024 take 1 tablet by mouth once daily predniSONE (Deltasone) 50 MG tablet Indications: Plantar fasciitis of right foot Take 1 tablet (50 mg) by mouth Daily for 6 days 6 tablet 10/11/2024 10/17/2024 Active Completed/Discontinued Medications Medication Drug Class(es) Dates Sig (Normalized) Sig (Original) Ketorolac (2 sources) Nonsteroidal Anti-inflammatory Drug, Cyclooxygenase Inhibitor Start: 08-23-2017 Toradol per 15 mg Aug, 60 mg Problems Active Problems Problem Classification Problem Date Documented Date Episodic/Chronic Anxiety disorders (20 sources) Anxiety disorder; Translations: [Anxiety disorder, unspecified] Onset: 11-17-2023 10-31-2023 Chronic Asthma (20 sources) Mild intermittent asthma; Translations: [Mild intermittent asthma, uncomplicated] Onset: 11-17-2023 11-17-2023 Chronic Disorders usually diagnosed in infancy, childhood, or adolescence (20 sources) Attention deficit hyperactivity disorder, predominantly inattentive type; Translations: [Other specified behavioral and emotional disorders with onset usually occurring in childhood and adolescence] Onset: 05-10-2024 07-03-2024 Chronic Esophageal disorders (20 sources) Gastroesophageal reflux disease; Translations: [Gastro-esophageal reflux disease without esophagitis] Onset: 11-17-2023 11-17-2023 Chronic Inflammation; infection of eye (except that caused by tuberculosis or sexually transmitteddisease) (1 source) Other mucopurulent conjunctivitis, bilateral Episodic Other nutritional; endocrine; and metabolic disorders (20 sources) Body mass index 30+ - obesity; Translations: [Obesity, unspecified] Onset: 11-17-2023 11-17-2023 Chronic Other upper respiratory disease (20 sources) Allergic rhinitis due to pollen; Translations: [Allergic rhinitis due to pollen] Onset: 11-17-2023 11-17-2023 Chronic Spondylosis; intervertebral disc disorders; other back problems (20 sources) Displacement of cervical intervertebral disc; Translations: [Other cervical disc displacement, unspecified cervical region] Onset: 02-04-2022 Resolved: 02-04-2022 Chronic Past or Other Problems Problem Classification Problem Date Documented Da te Episodic/Chronic Other connective tissue disease (14 sources) Plantar fasciitis of right foot; Translations: [Plantar fascial fibromatosis] Onset: 10-11-2024 10-11-2024 Episodic Results Test Name Value Interpretation Reference Range Facility CBC AUTO DIFFon 11-09-2022 BASO # 0.1 103/ul Normal 0.0-0.1 Comment on above: Performed By: #### C BC #### [facility] [address] [place] [address] Dr. Tato Siegel Basophils/100 WBC (Bld) 0.7 % Normal 0.2-2.0 Comment on above: Performed By: #### C BC #### [facility] [address] [address] [address] Tato Siegel EO # 0.2 103/ul Normal 0.0-0.7 Comment on above: Performed By: #### C BC #### [facility] [address] [address] [address] Tato Siegel Eosinophils/100 WBC (Bld) 2.2 % Normal 0.9-7.0 Comment on above: Performed By: #### C BC #### [facility] [address] [address] [address] Tato Siegel Erythrocyte distribution width (RBC) [Ratio] 12.5 % Normal 11.0-15.0 Comment on above: Performed By: #### C BC #### [facility] [address] [place] [address] Dr. Tato Siegel Hematocrit (Bld) [Volume fraction] 47.1 % Normal 42.0-54.0 Comment on above: Performed By: #### C BC #### [facility] [address] [address] [address] Tato Siegel Hemoglobin (Bld) [Mass/Vol] 16.0 g/dL Normal 14.0-18.0 Comment on above: Performed By: #### C BC #### [facility] [address] [address] [address] Tato Siegel IG # 0.05 10e3/ul Critically high 0.00-0.03 [facility] Comment on above: Performed By: #### C BC #### [facility] [address] [address] [address] Tato Siegel IG % 0.5 % Normal 0.0-0.5 Comment on above: Performed By: #### C BC #### [facility] [address] [place] [address] Dr. Tato Siegel LYMPH # 3.8 103/ul Normal 1.2-3.8 Comment on above: Performed By: #### C BC #### [facility] [address] [place] [address] Dr. Tato Siegel Lymphocytes/100 WBC (Bld) 35.4 % Normal 20.5-60.0 Comment on above: Performed By: #### C BC #### [facility] [address] [place] [address] Dr. Tato Siegel MANUAL DIFF REQ NO Normal [facility] Comment on above: Performed By: #### C BC #### [facility] [address] [place] [address] Dr. Tato Siegel MCH (RBC) [Entitic mass] 28.4 pg Normal 25.9-34.0 Comment on above: Performed By: #### C BC #### [facility] [address] [place] [address] Dr. Tato Siegel MCHC (RBC) [Mass/Vol] 34.0 g/dL Normal 29.9-35.2 Comment on above: Performed By: #### C BC #### [facility] [address] [address] [address] Tato Siegel MCV (RBC) [Entitic vol] 83.7 fL Normal 80.0-94.0 Comment on above: Performed By: #### C BC #### [facility] [address] [address] [address] Tato Siegel MONO # 0.7 103/ul Normal 0.3-0.8 [facility] Comment on above: Performed By: #### C BC #### [facility] [address] [address] [address] Tato Siegel Monocytes/100 WBC (Bld) 6.9 % Normal 1.7-12.0 Comment on above: Performed By: #### C BC #### [facility] [address] [place] [address] Dr. Tato Siegel NEUT # 5.8 103/ul Normal 1.4-6.5 Comment on above: Performed By: #### C BC #### [facility] [address] [place] [address] Dr. Tato Siegel Neutrophils/100 WBC (Bld) 54.3 % Normal 43.0-75.0 Comment on above: Performed By: #### C BC #### [facility] [address] [place] [address] Dr. Tato Siegel Platelet mean volume (Bld) [Entitic vol] 9.8 fL Normal 9.5-13.5 [facility] Comment on above: Performed By: #### C BC #### [facility] [address] [place] [address] Dr. Tato Siegel PLT 385 103/ul Normal 150-450 [facility] Comment on above: Performed By: #### C BC #### [facility] [address] [place] [address] Dr. Tato Siegel RBC 5.63 106/ul Normal 4.70-6.10 [facility] Comment on above: Performed By: #### C BC #### [facility] [address] [address] [address] Tato Siegel WBC 10.7 103/ul Normal 4.0-11.0 Comment on above: Performed By: #### C BC #### [facility] [address] [address] [address] Tato Siegel GLYCOHEMOGLOBIN A1Con 2022 ADA RECOMMENDATION SEE BELOW Normal [facility] Comment on above: Result Comment: ADA RECOMMENDED LIMIT 4.0 - 6.0 ADA THERAPEUTIC TARGET < 7.0 ACTION SUGGESTED > 7.0 Performed By: #### A 1C #### [facility] [address] [place] [address] Dr. Tato Siegel Glucose [Mass/Vol] 111 mg/dL Normal [facility] Comment on above: Performed By: #### A 1C #### [facility] [address] [place] [address] Dr. Tato Siegel HbA1c (Bld) [Mass fraction] 5.5 % Normal 4.5-6.2 Comment on above: Performed By: #### A 1C #### [facility] [address] [place] [address] Dr. Tato Siegel LIPID PROFILEon 11-09-2022 CHOL-HDL RATIO NORM SEE BELOW Normal [facility] Comment on above: Result Comment: 3.3 - 4.4 LOW RISK 4.4 - 7.1 AVERAGE RISK 7.1 - 11.0 MODERATE RISK >11.0 HIGH RISK Performed By: #### T SH, BMP, LIVER, LIPID #### [facility] [address] [place] [address] Dr. Tato Siegel Cholesterol [Mass/Vol] 220 mg/dL Critically high <=200 Comment on above: Performed By: #### T SH, BMP, LIVER, LIPID #### [facility] [address] [address] [address] Tato Siegel Cholesterol in HDL [Mass/Vol] 43 mg/dL Normal 40-60 Comment on above: Performed By: #### T SH, BMP, LIVER, LIPID #### [facility] [address] [place] [address] Dr. Tato Siegel Cholesterol in LDL [Mass/Vol] 147.2 mg/dL Normal Comment on above: Performed By: #### T SH, BMP, LIVER, LIPID #### [facility] [address] [address] [address] Tato Siegel Cholesterol.total/Ch olesterol in HDL [Mass ratio] 5.1 {ratio} Normal Comment on above: Performed By: #### T SH, BMP, LIVER, LIPID #### [facility] [address] [address] [address] Tato Siegel HDL NORMAL > or = 60 mg/dl - LO W CARDIOVASCULAR RISK <40 mg/dl - HIGH CARDIOVASCULAR RISK Normal Comment on above: Performed By: #### T SH, BMP, LIVER, LIPID #### [facility] [address] [place] [address] Dr. Tato Siegel LDL CALC NORMAL SEE BELOW Normal [facility] Comment on above: Result Comment: <100 mg/dl OPTIMAL 100 - 129 mg/dl NEAR OR ABOVE OPTIMAL 130 - 159 mg/dl BORDERLINE HIGH 160 - 189 mg/dl HIGH >190 mg/dl VERY HIGH Performed By: #### T YUSUF, BMP, LIVER, LIPID #### [facility] [address] [address] [address] Tato Siegel Triglyceride [Mass/Vol] 149 mg/dL Normal <=150 Comment on above: Performed By: #### T YUSUF, BMP, LIVER, LIPID #### [facility] [address] [place] [address] Dr. Tato Siegel VLDL CALC 29.8 mg/dL Normal Comment on above: Performed By: #### T SH, BMP, LIVER, LIPID #### [facility] [address] [place] [address] Dr. Tato Siegel LIVER PROFILEon 11-09-2022 Albumin [Mass/Vol] 4.4 g/dL Normal 3.4-5.0 [facility] Comment on above: Performed By: #### T SH, BMP, LIVER, LIPID #### [facility] [address] [address] [address] Tato Siegel Albumin/Globulin [Mass ratio] 1.1 {ratio} Normal Comment on above: Performed By: #### T SH, BMP, LIVER, LIPID #### [facility] [address] [place] [address] Dr. Tato Siegel ALP [Catalytic activity/Vol] 103 U/L Normal 46-116 Comment on above: Performed By: #### T SH, BMP, LIVER, LIPID #### [facility] [address] [place] [address] Dr. Tato Siegel ALT [Catalytic activity/Vol] 39 U/L Normal 16-63 Comment on above: Performed By: #### T SH, BMP, LIVER, LIPID #### [facility] [address] [place] [address] Dr. Tato Siegel AST [Catalytic activity/Vol] 19 U/L Normal 15-37 Comment on above: Performed By: #### T SH, BMP, LIVER, LIPID #### [facility] [address] [place] [address] Dr. Tato Siegel BILI, CONJUGATED 0.1 mg/dL Normal 0.0-0.2 [facility] Comment on above: Performed By: #### T SH, BMP, LIVER, LIPID #### [facility] [address] [place] [address] Dr. Tato Siegel Bilirubin [Mass/Vol] 0.4 mg/dL Normal 0.2-1.0 Comment on above: Performed By: #### T SH, BMP, LIVER, LIPID #### [facility] [address] [place] [address] Dr. Tato Siegel Globulin (S) [Mass/Vol] 3.9 g/dL Normal Comment on above: Performed By: #### T SH, BMP, LIVER, LIPID #### [facility] [address] [place] [address] Dr. Tato Siegel Protein [Mass/Vol] 8.3 g/dL Critically high 6.4-8.2 [facility] Comment on above: Performed By: #### T SH, BMP, LIVER, LIPID #### [facility] [address] [address] [address] Tato Siegel PROF CHEM 8 (BAS METB)on Anion gap [Moles/Vol] 13.5 mmol/L Normal Comment on above: Performed By: #### T SH, BMP, LIVER, LIPID #### [facility] [address] [address] [address] Tato Siegel Calcium [Mass/Vol] 9.4 mg/dL Normal 8.5-10.1 [facility] Comment on above: Performed By: #### T SH, BMP, LIVER, LIPID #### [facility] [address] [place] [address] Dr. Tato Siegel Chloride [Moles/Vol] 103 mmol/L Normal 98-107 Comment on above: Performed By: #### T SH, BMP, LIVER, LIPID #### [facility] [address] [place] [address] Dr. Tato Siegel CO2 [Moles/Vol] 25.6 mmol/L Normal 21.0-32.0 [facility] Comment on above: Performed By: #### T SH, BMP, LIVER, LIPID #### [facility] [address] [place] [address] Dr. Tato Siegel Creatinine [Mass/Vol] 0.86 mg/dL Normal 0.70-1.30 Comment on above: Performed By: #### T SH, BMP, LIVER, LIPID #### [facility] [address] [place] [address] Dr. Tato Siegel EGFR-AF TOGOLESE >60 Normal >=60 [facility] Comment on above: Performed By: #### T SH, BMP, LIVER, LIPID #### [facility] [address] [place] [address] Dr. Tato Siegel EGFR-NON AF TOGOLESE >60 Normal >=60 Comment on above: Performed By: #### T SH, BMP, LIVER, LIPID #### [facility] [address] [address] [address] Tato Siegel Glucose [Mass/Vol] 87 mg/dL Normal 74-106 [facility] Comment on above: Performed By: #### T SH, BMP, LIVER, LIPID #### [facility] [address] [address] [address] Tato Siegel Potassium [Moles/Vol] 4.1 mmol/L Normal 3.5-5.1 Comment on above: Performed By: #### T SH, BMP, LIVER, LIPID #### [facility] [address] [address] [address] Tato Siegel Sodium [Moles/Vol] 138 mmol/L Normal 136-145 [facility] Comment on above: Performed By: #### T SH, BMP, LIVER, LIPID #### [facility] [address] [address] [address] Tato Siegel Urea nitrogen [Mass/Vol] 14.0 mg/dL Normal 7.0-18.0 Comment on above: Performed By: #### T SH, BMP, LIVER, LIPID #### [facility] [address] [place] [address] Dr. Tato Siegel Urea nitrogen/Creatinine [Mass ratio] 16.3 mg/mg Normal Comment on above: Performed By: #### T SH, BMP, LIVER, LIPID #### [facility] [address] [address] [address] Tato Siegel TSHon 11-09-2022 TSH 1.333 uIU/mL Normal 0.358-3.740 [facility] Comment on above: Performed By: #### T SH, BMP, LIVER, LIPID #### [facility] [address] [address] [address] Tato Siegel Neurosurgery Office/Clinic N oteon [...] sagittal pl (more content not included)... Normal [facility] MRI Spine Cervical w/o Contr rahat [...] Electronically Signed in Other Vendor System) Normal [facility] Neurosurgery Office/Clinic N frieda 10-01-2021 Neurosurgery Office/Clinic Note Chief Complaint Patient [...] Mike Bo PA-C 10/01/21 12:24 EST Normal [facility] Provider Letteron 10-01-2021 Provider Letter (Inserted Image. Yelitza ble to display) Thomas Zaragoza MD [address] [place] [address] Re: Darnell Garvin Date of Visit: 10/01/2021 Dear Thomas Zaragoza, Thank you for your referral and allowing me to contribute to the care of your patient: Darnell Garvin. Attached is my office note where you will find my assessment and recommendations from our encounter. My office?s contact information: [facility] [address], [phone] Let me know if you have any questions or concerns. Sincerely, MILKA Louise Providers: The following document(s) were included in the letter: October 01, 2021 09:29:04 EST - (10/01/2021) Neurosurgery Office Visit Note Normal [facility] Vital Signs Date Time Vital Sign Value Performing Clinician Facility 04-18-2025 08:44-0400 Body height 193 cm Thomas Zaragoza MD Work Phone: [facility] 04-18-2025 08:44-0400 Body mass index (BMI) [Ratio] 29.21 kg/m2 Thomas Zaragoza MD Work Phone: [facility] 04-18-2025 08:44-0400 Body temperature 97.81 [degF] Thomas Zaragoza MD Work Phone: [facility] 04-18-2025 08:44-0400 Body weight 108.86 kg Thomas Zaragoza MD Work Phone: [facility] 04-18-2025 08:44-0400 Diastolic blood pressure 76 mm[Hg] Thomas Zaragoza MD Work Phone: [facility] 04-18-2025 08:44-0400 Heart rate 75 /min Thomas Zaragoza MD Work Phone: [facility] 04-18-2025 08:44-0400 Respiratory rate 18 /min Thomas Zaragoza MD Work Phone: [facility] 04-18-2025 08:44-0400 SaO2% (BldA) [Mass fraction] 98 % Thomas Zaragoza MD Work Phone: [facility] 04-18-2025 08:44-0400 Systolic blood pressure 128 mm[Hg] Thomas Zaragoza MD Work Phone: [facility] 11-13-2024 08:29-0500 Body mass index (BMI) [Ratio] 29.7 kg/m2 Thomas Zaragoza MD Work Phone: [facility] 11-13-2024 08:29-0500 Body temperature 97.7 [degF] Thomas Zaragoza MD Work Phone: [facility] 11-13-2024 08:29-0500 Body weight 110.68 kg Thomas Zaragoza MD Work Phone: [facility] 11-13-2024 08:29-0500 Diastolic blood pressure 84 mm[Hg] Thomas Zaragoza MD Work Phone: [facility] 11-13-2024 08:29-0500 Heart rate 87 /min Thomas Zaragoza MD Work Phone: [facility] 11-13-2024 08:29-0500 SaO2% (BldA) [Mass fraction] 98 % Thomas Zaragoza MD Work Phone: [facility] 11-13-2024 08:29-0500 Systolic blood pressure 142 mm[Hg] Thomas Zaragoza MD Work Phone: [facility] 10-11-2024 07:40-0500 Body height 193 cm Thomas Zaragoza MD Work Phone: [facility] 10-11-2024 07:40-0500 Body mass index (BMI) [Ratio] 30.19 kg/m2 Thomas Zaragoza MD Work Phone: [facility] 10-11-2024 07:40-0500 Body temperature 97.5 [degF] Thomas Zaragoza MD Work Phone: [facility] 10-11-2024 07:40-0500 Body weight 112.49 kg Thomas Zaragoza MD Work Phone: [facility] 10-11-2024 07:40-0500 Diastolic blood pressure 64 mm[Hg] Thomas Zaragoza MD Work Phone: [facility] 10-11-2024 07:40-0500 Heart rate 79 /min Thomas Zaragoza MD Work Phone: [facility] 10-11-2024 07:40-0500 Respiratory rate 20 /min Thomas Zaragoza MD Work Phone: [facility] 10-11-2024 07:40-0500 SaO2% (BldA) [Mass fraction] 98 % Thomas Zaragoza MD Work Phone: [facility] 10-11-2024 07:40-0500 Systolic blood pressure 108 mm[Hg] Thomas Zaragoza MD Work Phone: [facility] 07-12-2024 07:53-0400 Body height 193 cm Thomas Zaragoza MD Work Phone: [facility] 07-12-2024 07:53-0400 Body mass index (BMI) [Ratio] 29.58 kg/m2 Thomas Zaragoza MD Work Phone: [facility] 07-12-2024 07:53-0400 Body temperature 97.5 [degF] Thomas Zaragoza MD Work Phone: [facility] 07-12-2024 07:53-0400 Body weight 110.22 kg Thomas Zaragoza MD Work Phone: [facility] 07-12-2024 07:53-0400 Diastolic blood pressure 66 mm[Hg] Thomas Zaragoza MD Work Phone: [facility] 07-12-2024 07:53-0400 Heart rate 76 /min Thomas Zaragoza MD Work Phone: [facility] 07-12-2024 07:53-0400 Respiratory rate 18 /min Thomas Zaragoza MD Work Phone: [facility] 07-12-2024 07:53-0400 SaO2% (BldA) [Mass fraction] 98 % Thomas Zaragoza MD Work Phone: [facility] 07-12-2024 07:53-0400 Systolic blood pressure 120 mm[Hg] Thomas Zaragoza MD Work Phone: [facility] 05-31-2024 07:49-0400 Body height 193 cm Thomas Zaragoza MD Work Phone: [facility] 05-31-2024 07:49-0400 Body mass index (BMI) [Ratio] 30.19 kg/m2 Thomas Zaragoza MD Work Phone: [facility] 05-31-2024 07:49-0400 Body temperature 97.5 [degF] Thomas Zaragoza MD Work Phone: [facility] 05-31-2024 07:49-0400 Body weight 112.49 kg Thomas Zaragoza MD Work Phone: [facility] 05-31-2024 07:49-0400 Diastolic blood pressure 64 mm[Hg] Thomas Zaragoza MD Work Phone: [facility] 05-31-2024 07:49-0400 Heart rate 83 /min Thomas Zaragoza MD Work Phone: [facility] 05-31-2024 07:49-0400 Respiratory rate 18 /min Thomas Zaragoza MD Work Phone: [facility] 05-31-2024 07:49-0400 SaO2% (BldA) [Mass fraction] 98 % Thomas Zaragoza MD Work Phone: [facility] 05-31-2024 07:49-0400 Systolic blood pressure 128 mm[Hg] Thomas Zaragoza MD Work Phone: [facility] 05-10-2024 07:33-0400 Body height 193 cm Thomas Zaragoza MD Work Phone: [facility] 05-10-2024 07:33-0400 Body mass index (BMI) [Ratio] 30.8 kg/m2 Thomas Zaragoza MD Work Phone: [facility] 05-10-2024 07:33-0400 Body temperature 97.5 [degF] Thomas Zaragoza MD Work Phone: [facility] 05-10-2024 07:33-0400 Body weight 114.76 kg Thomas Zaragoza MD Work Phone: [facility] 05-10-2024 07:33-0400 Diastolic blood pressure 64 mm[Hg] Thomas Zaragoza MD Work Phone: [facility] 05-10-2024 07:33-0400 Heart rate 76 /min Thomas Zaragoza MD Work Phone: [facility] 05-10-2024 07:33-0400 Respiratory rate 18 /min Thomas Zaragoza MD Work Phone: [facility] 05-10-2024 07:33-0400 SaO2% (BldA) [Mass fraction] 98 % Thomas Zaragoza MD Work Phone: [facility] 05-10-2024 07:33-0400 Systolic blood pressure 122 mm[Hg] Thomas Zaragoza MD Work Phone: [facility] 10-28-2022 10:25-0500 Body height 193.04 cm Linh Daley [facility] Other 10-28-2022 10:25-0500 Body mass index (BMI) [Ratio] 32.5 kg/m2 Linh Daley [facility] Other 10-28-2022 10:25-0500 Body temperature 98 [degF] Linh Daley [facility] Other 10-28-2022 10:25-0500 Body weight 121.11 kg Monseolman Edi [facility] Other 10-28-2022 10:25-0500 Respiratory rate 18 /min Linh Edi [facility] Other 10-28-2022 10:25-0500 SaO2% (BldA) [Mass fraction] 95 % Linh Daley [facility] Other 02-04-2022 15:00-0400 Body height 193.04 cm Jamie Elschiki [facility] Other 02-04-2022 15:00-0400 Body mass index (BMI) [Ratio] 32.5 kg/m2 Jamie Klein [facility] Other 02-04-2022 15:00-0400 Body weight 121.11 kg Jamie Elschiki [facility] Other Encounters Encounter Date Encounter Type Care Provider Facility Start: 04-18-2025 End: 04-18-2025 Bamboo flowsheet Thomas Zaragoza MD Work Phone: [facility] Start: 04-18-2025 End: 04-18-2025 Bamboo flowsheet Thomas Zaragoza MD Work Phone: [facility] Start: 04-18-2025 End: 04-18-2025 Patient encounter procedure Thomas Zaragoza MD Work Phone: [facility] Work Phone: Start: 04-18-2025 End: 04-18-2025 Periodic preventive med est patient 18-39 yrs Thomas Zaragoza MD Work Phone: [facility] Comment on above: Annual physical exam (Primary Dx) Start: 03-20-2025 End: 03-20-2025 Refill Thomas Zaragoza MD Work Phone: [facility] Comment on above: 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 Start: 02-13-2025 End: 02-13-2025 Refill Thomas Zaragoza MD Work Phone: [facility] Comment on above: 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 Start: 02-04-2025 End: 02-06-2025 Refill Thomas Zaragoza MD Work Phone: [facility] Comment on above: Anxiety disorder, un specified; Anxiety state ([facility]) Start: 11-13-2024 End: 11-13-2024 Bamboo flowsheet Thomas Zaragoza MD Work Phone: [facility] Start: 11-13-2024 End: 11-13-2024 Bamboo flowsheet Thomas Zaragoza MD Work Phone: [facility] Start: 11-13-2024 End: 11-13-2024 Office outpatient visit 15 minutes Thomas Zaragoza MD Work Phone: [facility] Comment on above: 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 (Primary Dx); Generalized anxiety disorder ([facility]) Start: 11-13-2024 End: 11-13-2024 ambulatory THOMAS ZARAGOZA Not Available Start: 11-08-2024 End: 11-08-2024 Refill Thomas Zaragoza MD Work Phone: [facility] Comment on above: 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 Start: 10-11-2024 End: 10-11-2024 Bamboo flowsheet Thomas Zaragoza MD Work Phone: [facility] Start: 10-11-2024 End: 10-11-2024 Bamboo flowsheet Thomas Zaragoza MD Work Phone: [facility] Start: 10-11-2024 End: 10-11-2024 ambulatory THOMAS ZARAGOZA Not Available Start: 10-11-2024 End: 10-11-2024 Office outpatient visit 25 minutes Thomas Zaragoza MD Work Phone: [facility] Comment on above: 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 Start: 07-12-2024 End: 07-12-2024 Bamboo flowsheet Thomas Zaragoza MD Work Phone: [facility] Start: 07-12-2024 End: 07-12-2024 Office outpatient visit 15 minutes Thomas Zaragoza MD Work Phone: 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 Start: 05-31-2024 End: 05-31-2024 Bamboo flowsheet Thomas Zaragoza MD Work Phone: [facility] Start: 05-31-2024 End: 05-31-2024 Bamboo flowsheet Thomas Zaragoza MD Work Phone: [facility] Start: 05-31-2024 End: 05-31-2024 Office outpatient visit 15 minutes Thomas Zaragoza MD Work Phone: [facility] Comment on above: 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 (Primary Dx); Generalized anxiety disorder (CMS/HCC) Start: 05-31-2024 End: 05-31-2024 ambulatory THOMAS ZARAGOZA Not Available Start: 05-30-2024 End: 05-31-2024 Refill Thomas Zaragoza MD Work Phone: [facility] Comment on above: Anxiety disorder, un specified; Anxiety state (CMS/HCC) Start: 05-10-2024 End: 05-10-2024 Bamboo flowsheet Thomas Zaragoza MD Work Phone: [facility] Start: 05-10-2024 End: 05-10-2024 Bamboo flowsheet Thomas Zaragoza MD Work Phone: [facility] Start: 05-10-2024 End: 05-10-2024 Patient encounter procedure Thomas Zaragoza MD Work Phone: [facility] Work Phone: Start: 05-10-2024 End: 05-10-2024 Periodic preventive med est patient 18-39 yrs Thomas Zaragoza MD Work Phone: [facility] Comment on above: Annual physical exam (Primary Dx); Attention deficit disorder (ADD) without hyperactivity; Generalized anxiety disorder (CMS/HCC) Start: 05-10-2024 End: 05-10-2024 ambulatory THOMAS ZARAGOZA Not Available Start: 11-17-2023 Patient encounter procedure Thomas Zaragoza MD Work Phone: [facility] Start: 11-17-2023 End: 11-17-2023 ambulatory THOMAS ZARAGOZA Not Available Start: 10-31-2023 Refill Thomas Black Work Phone: [facility] Comment on above: Anxiety disorder, un specified; Anxiety state ([facility]) Start: 11-13-2022 Encounter for genera l adult medical examination without abnormal findings DR THOMAS ZARAGOZA Start: 11-09-2022 End: 11-10-[address] THOMAS ZARAGOZA Facility:[facility] Start: 11-09-2022 End: 11-10-2022 Encounter for general adult medical examination without abnormal findings DR THOMAS ZARAGOZA Facility:[facility] Start: 10-28-2022 End: 10-28-2022 ambulatory Linh Daley [facility] Other Start: 10-28-2022 Office outpatient vi sit 15 minutes Linh Daley [facility] [place] Start: 02-04-2022 End: 02-04-2022 ambulatory Jamie Klein [facility] Other Start: 02-04-2022 Office outpatient ne w 45 minutes Jamie Klein [facility] [place] Start: 10-20-2021 ambulatory Burt Haque Facricha lity:[facility] Start: 10-20-2021 End: 10-21-2021 ambulatory THOMAS ZARAGOZA Facility:[facility] Start: 10-07-2021 End: 10-08-2021 ambulatory THOMAS ZARAGOZA Facility:[facility] Plan of Treatment Date Care Activity Detail Author Start: 10-22-2025 End: 10-22-2025 Patient encounter procedure 10/22/2025 8:00 AM EST Office Visit [facility] [address] [place] [id number] Thomas Zaragoza MD [address] [place] [phone] [facility] Start: 05-21-2025 Influenza vaccination [facility] Start: 04-30-2025 End: 04-30-2025 Patient encounter procedure 04/30/2025 8:00 AM EDT Office Visit [facility] [address] [place] [address] Thomas Zaragoza MD [address] [place] [address] [facility] Start: 04-18-2025 End: 04-18-2026 Basic metabolic 1998 panel - Serum or Plasma Basic metabolic panel Lab Routine Annual physical exam Expected: 04/18/2025 (Approximate), Expires: 04/18/2026 [facility] Comment on above: Expected: 04/18/2025 (Approximate), Expires: 04/18/2026 Start: 04-18-2025 End: 04-18-2026 CBC W Auto Differential panel - Blood CBC and differential Lab Routine Annual physical exam Expected: 04/18/2025 (Approximate), Expires: 04/18/2026 [facility] Comment on above: Expected: 04/18/2025 (Approximate), Expires: 04/18/2026 Start: 04-18-2025 End: 04-18-2026 Hemoglobin A1c/Hemoglobin.total in Blood Hemoglobin A1c Lab Routine Annual physical exam Expected: 04/18/2025 (Approximate), Expires: 04/18/2026 [facility] Comment on above: Expected: 04/18/2025 (Approximate), Expires: 04/18/2026 Start: 04-18-2025 End: 04-18-2026 Hepatic function 2000 panel - Serum or Plasma Hepatic function panel Lab Routine Annual physical exam Expected: 04/18/2025 (Approximate), Expires: 04/18/2026 [facility] Comment on above: Expected: 04/18/2025 (Approximate), Expires: 04/18/2026 Start: 04-18-2025 End: 04-18-2026 Lipid 1996 panel - Serum or Plasma Lipid panel Lab Routine Annual physical exam Expected: 04/18/2025 (Approximate), Expires: 04/18/2026 [facility] Comment on above: Expected: 04/18/2025 (Approximate), Expires: 04/18/2026 Start: 04-18-2025 End: 04-18-2026 Testosterone [Mass/volume] in Serum or Plasma Testosterone Lab Routine Annual physical exam Expected: 04/18/2025 (Approximate), Expires: 04/18/2026 [facility] Work Phone: Comment on above: Expected: 04/18/2025 (Approximate), Expires: 04/18/2026 Start: 04-18-2025 End: 04-18-2026 Thyrotropin [Units/volume] in Serum or Plasma TSH Lab Routine Annual physical exam Expected: 04/18/2025 (Approximate), Expires: 04/18/2026 [facility] Comment on above: Expected: 04/18/2025 (Approximate), Expires: 04/18/2026 Start: 04-18-2025 End: 04-18-2025 Patient encounter procedure [facility] Comment on above: Arrived Start: 03-28-2025 End: 03-28-2025 Patient encounter procedure 03/28/2025 8:15 AM EDT Office Visit [facility] [address] [place] [phone] Thomas Zaragoza MD [address] [place] [phone] [facility] Start: 11-13-2024 End: 11-13-2024 Patient encounter procedure [facility] Comment on above: Arrived Start: 10-11-2024 End: 10-11-2024 Patient encounter procedure 10/11/2024 7:30 AM EST Office Visit [facility] [address] [place] [phone] Thomas Zaragoza MD [address] [place] [phone] [facility] Start: 07-12-2024 End: 07-12-2024 Patient encounter procedure [facility] Comment on above: Arrived Start: 05-31-2024 End: 05-31-2024 Patient encounter procedure [facility] Comment on above: Arrived Start: 05-21-2024 Influenza vaccination Influenza Vacc ine (#1) [facility] Start: 05-10-2024 End: 05-10-2024 Patient encounter procedure 05/10/2024 7:30 AM EDT Office Visit [facility] [address] [place] [phone] Thomas Zaragoza MD [address] [place] [phone] Arrived [facility] Comment on above: Arrived Start: 11-17-2023 End: 11-17-2023 Patient encounter procedure 11/17/2023 7:15 AM EST Office Visit [facility] [address] [place] [address] Thomas Zaragoza MD [address] [place] [phone] [facility] Start: 05-21-2023 Influenza vaccination Influenza Vacc ine (#1) [facility] Immunizations Immunization Date Immunization Notes Care Provider Fa cili 08-31-2022 influenza virus vacc ine, unspecified formulation Thomas Zaragoza MD Work Phone: [facility] Payers Date Payer Category Payer [facility] [id number] 2021 Unknown 1987 Unknown [id number] [id number] 1987 Unknown [id number]. 2.196 1987 Unknown [id number] [id number]. 2.196 1987 Unknown [id number]. [id number] 1987 Unknown [id number] [id number]. 2.9 1987 Unknown [id number] [id number]. 2.9 1987 Unknown [id number] [id number]. 2.9 1987 Unknown [id number] [id number]. 2.9 1987 Unknown [id number] [id number]. 2.9 1987 Unknown [id number] [id number]. [id number] 1959 Unknown [id number] Social History Date Type Detail Facility Unknown if ever smoked [facility] [employer] Other Start: 10-08-2023 End: 11-15-2023 Sex Assigned At [facility] Start: 10-08-2023 End: 11-17-2023 Tobacco smoking status NEIS Never smoked tobacco [facility] Start: 10-08-2023 End: 11-15-2023 History of Social function [facility] Start: 1985 Sex Assigned At Not on file [facility] Start: 11-17-2023 Tobacco use and exposure Smokeless tobacco non-user [facility] How often do you att end druze or rastafarian services? Patient declined [facility] Are you now , , , , never or living with a partner? [facility] How often to you hav e a drink containing alcohol? 2-4 times a month [facility] How many standard drinks containing alcohol do you have on a typical day? 3 or 4 [facility] How often do you hav e 6 or more drinks on 1 occasion? Less than monthly [facility] Do you feel stress - tense, restless, nervous, or anxious, or unable to sleep at night because your mind is troubled all the time - these days [OSQ] To some extent [facility] Clinical Notes 10-21-2021 to 04-18-2025 Thomas Zaragoza MD - 04/18/2025 9:33 AM Chay Zaragoza MD - 04/18/2025 8:30 AM Chay Zaragoza MD - 11/13/2024 9:09 AM Alyssia Zaragoza MD - 11/13/2024 9:09 AM EST Note Date & Type Note Facility 04-18-2025 History of Presen t illness Narrative Associated Problem(s): Annual physical exam Due for labs. Discussed proper diet and regular aerobic exercise. Need aerobic exercise 5-6 days a week for 30 minutes at a time. Smaller portions and limit total calories. Colonoscopy after age 47. Tetanus every 10 years. Advised not to smoke. Images from the original note were not [...] TSH Hemoglobin A1c documented in this encounter [facility] 11-13-2024 History of Presen t illness Narrative Associated Problem(s): Attention deficit disorder (ADD) without hyperactivity Symptoms tolerable with adderall and continue at current dose. Associated Problem(s): Generalized anxiety disorder (CMS/HCC) Occasional symptoms and use xanax PRN. Images from the original note were not included. Subjective Patient ID: Darnell Garvin is a 39 y.o. male who presents for No chief complaint on file.. Follow up ADD and anxiety. Added wellbutrin last visit to help combat side effects and anxiety but stopped due to severe sedation. ADD controlled with adderall. Able to stay focused and complete work. Able to stay on task and follow directions. Functioning well at work. Anxiety stable. Not as stressed out or overwhelmed. Not as nervous or worry as much. Not as yarbrough or irritable. Using xanax PRN and helps. Review of Systems Constitutional: Negative for fatigue. [...] There is no guarding or rebound. Musculoskeletal: Left lower leg: No edema. Neurological: Mental Status: He is alert. Assessment/Plan Problem List Items Addressed This Visit Generalized anxiety disorder (CMS/HCC) Occasional symptoms and use xanax PRN. Attention deficit disorder (ADD) without hyperactivity - Primary Symptoms tolerable with adderall and continue at current dose. documented in this encounter [facility] 10-11-2024 History of Presen t illness Narrative Associated Problem(s): Plantar fasciitis of right foot History and exam suggestive plantar fasciitis. Start prednisone x 5 days for inflammation and pain. Handout with stretches to patient and ice at end of day. Discussed importance of proper supportive shoes. If continue to have problems will need PT and x-ray. May need podiatry for injections. Continue meds as prescribed. If develop new or worsening symptoms contact office. Associated Problem(s): Generalized anxiety disorder (CMS/HCC) Occasional symptoms and use xanax PRN. Associated Problem(s): Attention deficit disorder (ADD) without hyperactivity Medication seems to wear off and c/o side effects. Add wellbutrin to help with symptoms and reassess in 1 month. Images from the original note were not included. Subjective Patient ID: Darnell Garvin is a 39 y.o. male who presents for Foot Injury (Right foot pain) and Follow-up (Having some side effects from adhd med). Follow up ADD and anxiety. Taking adderall and notice medication not working as well. Initially able to stay focused and accomplish tasks. Able to stay organized and be more productive. Medication still works well in am but notice seems to wear off towards end of day. C/o side effects from medication and noticed constipation and dry mouth. Trying to increase water intake. Notice sexual side effects and premature ejaculation. Anxiety stable. Not as stressed out or overwhelmed. Not as nervous or worry as much. Not as yarbrough or irritable. Using xanax at bedtime and helps. C/o pain in bottom right foot for several months. Started after 5K in May. Pain in bottom foot and heel. Pain across arch. Pain with walking and standing. Difficult to exercise due to pain. Tried inserts and stretches. Review of Systems Constitutional: Negative for fatigue. [...] There is no guarding or rebound. Musculoskeletal: Left lower leg: No edema. Neurological: Mental Status: He is alert. Assessment/Plan Problem List Items Addressed This Visit Generalized anxiety disorder (CMS/HCC) Occasional symptoms and use xanax PRN. Attention deficit disorder (ADD) without hyperactivity - Primary Medication seems to wear off and c/o side effects. Add wellbutrin to help with symptoms and reassess in 1 month. Relevant Medications buPROPion XL (Wellbutrin XL) 150 MG 24 hr tablet Plantar fasciitis of right foot History and exam suggestive plantar fasciitis. Start prednisone x 5 days for inflammation and pain. Handout with stretches to patient and ice at end of day. Discussed importance of proper supportive shoes. If continue to have problems will need PT and x-ray. May need podiatry for injections. Continue meds as prescribed. If develop new or worsening symptoms contact office. Relevant Medications predniSONE (Deltasone) 50 MG tablet f documented in this encounter [facility] 07-12-2024 History of Presen t illness Narrative Associated Problem(s): Generalized anxiety disorder (CMS/HCC) Occasional symptoms and use xanax PRN. Associated Problem(s): Attention deficit disorder (ADD) without hyperactivity Symptoms controlled with adderall and continue at current dose. Images from the original note were not included. Subjective Patient ID: Darnell Garvin is a 39 y.o. male who presents for Follow-up (1 m). Follow up ADD and anxiety. Changed to adderall last visit due to side effects from strattera and doing well. Side effects resolved. ADD controlled with medication. Able to stay focused and thinking clearer. More organized and functioning well. Not as distracted. Anxiety stable. Not as stressed out or overwhelmed. Not as nervous or worry as much. Not as yarbrough or irritable. Using xanax PRN and helps when needed. Review of Systems Constitutional: Negative for fatigue. [...] There is no guarding or rebound. Musculoskeletal: Left lower leg: No edema. Neurological: Mental Status: He is alert. Assessment/Plan Problem List Items Addressed This Visit Generalized anxiety disorder (CMS/HCC) Occasional symptoms and use xanax PRN. Attention deficit disorder (ADD) without hyperactivity - Primary Symptoms controlled with adderall and continue at current dose. documented in this encounter [facility] 05-31-2024 History of Presen t illness Narrative Associated Problem(s): Generalized anxiety disorder (CMS/HCC) Occasional symptoms and use xanax PRN. Associated Problem(s): Attention deficit disorder (ADD) without hyperactivity Symptoms improved but side effects from strattera and stop. Try adderall. Images from the original note were not included. Subjective Patient ID: Darnell Garvin is a 39 y.o. male who presents for Follow-up (1 M ) and Suture / Staple Removal (POSSIBLE REMOVE IF READY). Follow up ADD and anxiety. Started strattera last visit and initially responded very well. Noticed more focused and thinking clearer. More organized and functioning well. Not as distracted. Over past few weeks symptoms returned and medication seems to wear off. Noticed sexual side effects. C/o ED and at times lose erection. Noticed delayed ejaculation and sometimes not able to finish. Anxiety stable. Not as stressed out or overwhelmed. Not as nervous or worry as much. Not as yarbrough or irritable. Using xanax PRN and helps when needed. Review of Systems Constitutional: Negative for fatigue. [...] There is no guarding or rebound. Musculoskeletal: Left lower leg: No edema. Neurological: Mental Status: He is alert. Assessment/Plan Problem List Items Addressed This Visit Generalized anxiety disorder (CMS/HCC) Occasional symptoms and use xanax PRN. Attention deficit disorder (ADD) without hyperactivity - Primary Symptoms improved but side effects from strattera and stop. Try adderall. Relevant Medications amphetamine-dextroamphetamine XR (Adderall XR) 20 MG 24 hr capsule documented in this encounter [facility] 05-10-2024 History of Presen t illness Narrative Associated Problem(s): Generalized anxiety disorder (CMS/HCC) Occasional symptoms and use xanax PRN. Associated Problem(s): Attention deficit disorder (ADD) without hyperactivity History consistent with ADD and start strattera. Associated Problem(s): Annual physical exam Reviewed labs. Discussed proper diet and regular aerobic exercise. Need aerobic exercise 5-6 days a week for 30 minutes at a time. Smaller portions and limit total calories. Colonoscopy after age 47. Tetanus every 10 years. Advised not to smoke. Discussed daily Aspirin therapy. Images from the original note were not included. Subjective Patient ID: Darnell Garvin is a 39 y.o. male who presents for Follow-up (Work physical). Presents for annual PE. Overall doing well. Weight down 4 pounds in the past year. Active and exercises several days a week. Lifts weights and runs. Tries to watch diet and eat healthy. Increased fruits and vegetables. Smaller portions and limits snacking. Tries to limit total daily calories. Reviewed labs and needs form completed for work. Anxiety stable. Not as stressed out or overwhelmed. Not as nervous or worry as much. Not as yarbrough or irritable. Using xanax PRN and helps. Concerned of ADD. Notice not focused and not organized. Hard to accomplish tasks and easily off track. Starting to affect job performance and having hard time completing work. 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 Always had a hard time with focus and was easily distracted. At times struggled in school. No prior assessment or treatment. Review of Systems Constitutional: Negative for fatigue. [...] Assessment/Plan Problem List Items Addressed This Visit Generalized anxiety disorder (CMS/HCC) Occasional symptoms and use xanax PRN. Annual physical exam - Primary Reviewed labs. Discussed proper diet and regular aerobic exercise. Need aerobic exercise 5-6 days a week for 30 minutes at a time. Smaller portions and limit total calories. Colonoscopy after age 47. Tetanus every 10 years. Advised not to smoke. Discussed daily Aspirin therapy. Attention deficit disorder (ADD) without hyperactivity History consistent with ADD and start strattera. Relevant Medications atomoxetine (Strattera) 40 MG capsule documented in this encounter [facility] 10-28-2022 Evaluation note Encounter Date Diagnosis Assessment Notes Oct, [place] eye disease of both eyes (ICD-10 - [...] Pt understood and agreed to treatment plan. [facility] Other 05-18-2022 Evaluation note* Encounter Date Diagnosis Assessment Notes Treatment Notes Treatment Clinical Notes January, Herniation of intervertebral disc at [...] has made significant improvement it becomes a [id number] decision, and If he feels that he [...] significant over the course of his life. [facility] Other 02-01-2022 NoteProcedure: Flexion and extension and swimmer's lateral views of the [...] Is Signed, Electronically Signed in Other V[facility] System[facility] Diagnosis Anxiety disorder, unspecified Anxiety state (CMS/HCC) Anxiety state, unspecified [facility] Diagnosis Generalized anxiety disorder (CMS/HCC)- Primary Generalized anxiety disorder Cervical disc herniation Displacement of cervical intervertebral disc without myelopathy Mild intermittent asthma without complication (CMS/HCC) Chronic allergic rhinitis due to pollen Gastroesophageal reflux disease without esophagitis Esophageal reflux Annual physical exam Routine general medical examination at a health care facility Annual physical exam- Primary Routine general medical examination at a health care facility Attention deficit disorder (ADD) without hyperactivity Generalized anxiety disorder (CMS/HCC) Generalized anxiety disorder Attention deficit disorder (ADD) without hyperactivity- Primary Generalized anxiety disorder (CMS/HCC) Generalized anxiety disorder Attention deficit disorder (ADD) without hyperactivity [facility] Diagnosis Generalized anxiety disorder (CMS/HCC)- Primary Generalized anxiety disorder Cervical disc herniation Displacement of cervical intervertebral disc without myelopathy Mild intermittent asthma without complication (CMS/HCC) Chronic allergic rhinitis due to pollen Gastroesophageal reflux disease without esophagitis Esophageal reflux Annual physical exam Routine general medical examination at a health care facility Annual physical exam- Primary Routine general medical examination at a health care facility Attention deficit disorder (ADD) without hyperactivity Generalized anxiety disorder (CMS/HCC) Generalized anxiety disorder Attention deficit disorder (ADD) without hyperactivity- Primary Generalized anxiety disorder (CMS/HCC) Generalized anxiety disorder Attention deficit disorder (ADD) without hyperactivity- Primary Generalized anxiety disorder (CMS/HCC) Generalized anxiety disorder [facility] Diagnosis Generalized anxiety disorder (CMS/HCC)- Primary Generalized anxiety disorder Cervical disc herniation Displacement of cervical intervertebral disc without myelopathy Mild intermittent asthma without complication (CMS/HCC) Chronic allergic rhinitis due to pollen Gastroesophageal reflux disease without esophagitis Esophageal reflux Annual physical exam Routine general medical examination at a health care facility Annual physical exam- Primary Routine general medical examination at a health care facility Attention deficit disorder (ADD) without hyperactivity Generalized anxiety disorder (CMS/HCC) Generalized anxiety disorder Attention deficit disorder (ADD) without hyperactivity- Primary Generalized anxiety disorder (CMS/HCC) Generalized anxiety disorder Attention deficit disorder (ADD) without hyperactivity- Primary Generalized anxiety disorder (CMS/HCC) Generalized anxiety disorder Anxiety disorder, unspecified Anxiety state (CMS/HCC) Anxiety state, unspecified Attention deficit disorder (ADD) without hyperactivity [facility] Diagnosis Generalized anxiety disorder (CMS/HCC)- Primary Generalized anxiety disorder Cervical disc herniation Displacement of cervical intervertebral disc without myelopathy Mild intermittent asthma without complication (CMS/HCC) Chronic allergic rhinitis due to pollen Gastroesophageal reflux disease without esophagitis Esophageal reflux Annual physical exam Routine general medical examination at a health care facility Annual physical exam- Primary Routine general medical examination at a health care facility Attention deficit disorder (ADD) without hyperactivity Generalized anxiety disorder (CMS/HCC) Generalized anxiety disorder Attention deficit disorder (ADD) without hyperactivity- Primary Generalized anxiety disorder (CMS/HCC) Generalized anxiety disorder Attention deficit disorder (ADD) without hyperactivity- Primary Generalized anxiety disorder (CMS/HCC) Generalized anxiety disorder Attention deficit disorder (ADD) without hyperactivity [facility] Diagnosis Annual physical exam- Primary Routine general medical examination at a health care facility Attention deficit disorder (ADD) without hyperactivity Generalized anxiety disorder (CMS/HCC) Generalized anxiety disorder [facility] Diagnosis Attention deficit disorder (ADD) without hyperactivity- Primary Generalized anxiety disorder (CMS/HCC) Generalized anxiety disorder [facility] Diagnosis Anxiety disorder, unspecified Anxiety state (CMS/HCC) Anxiety state, unspecified [facility] Diagnosis Generalized anxiety disorder (CMS/HCC)- Primary Generalized anxiety disorder Cervical disc herniation Displacement of cervical intervertebral disc without myelopathy Mild intermittent asthma without complication (CMS/HCC) Chronic allergic rhinitis due to pollen Gastroesophageal reflux disease without esophagitis Esophageal reflux Annual physical exam Routine general medical examination at a health care facility Annual physical exam- Primary Routine general medical examination at a health care facility Attention deficit disorder (ADD) without hyperactivity Generalized anxiety disorder (CMS/HCC) Generalized anxiety disorder Attention deficit disorder (ADD) without hyperactivity- Primary Generalized anxiety disorder (CMS/HCC) Generalized anxiety disorder Attention deficit disorder (ADD) without hyperactivity- Primary Generalized anxiety disorder (CMS/HCC) Generalized anxiety disorder Attention deficit disorder (ADD) without hyperactivity- Primary Generalized anxiety disorder (CMS/HCC) Generalized anxiety disorder Plantar fasciitis of right foot [facility] Diagnosis Generalized anxiety disorder (CMS/HCC)- Primary Generalized anxiety disorder Cervical disc herniation Displacement of cervical intervertebral disc without myelopathy Mild intermittent asthma without complication (CMS/HCC) Chronic allergic rhinitis due to pollen Gastroesophageal reflux disease without esophagitis Esophageal reflux Annual physical exam Routine general medical examination at a health care facility Annual physical exam- Primary Routine general medical examination at a health care facility Attention deficit disorder (ADD) without hyperactivity Generalized anxiety disorder (CMS/HCC) Generalized anxiety disorder Attention deficit disorder (ADD) without hyperactivity- Primary Generalized anxiety disorder (CMS/HCC) Generalized anxiety disorder Attention deficit disorder (ADD) without hyperactivity- Primary Generalized anxiety disorder (CMS/HCC) Generalized anxiety disorder Attention deficit disorder (ADD) without hyperactivity- Primary Generalized anxiety disorder (CMS/HCC) Generalized anxiety disorder Plantar fasciitis of right foot Attention deficit disorder (ADD) without hyperactivity [facility] Diagnosis Generalized anxiety disorder (CMS/HCC)- Primary Generalized anxiety disorder Cervical disc herniation Displacement of cervical intervertebral disc without myelopathy Mild intermittent asthma without complication (CMS/HCC) Chronic allergic rhinitis due to pollen Gastroesophageal reflux disease without esophagitis Esophageal reflux Annual physical exam Routine general medical examination at a health care facility Annual physical exam- Primary Routine general medical examination at a health care facility Attention deficit disorder (ADD) without hyperactivity Generalized anxiety disorder (CMS/HCC) Generalized anxiety disorder Attention deficit disorder (ADD) without hyperactivity- Primary Generalized anxiety disorder (CMS/HCC) Generalized anxiety disorder Attention deficit disorder (ADD) without hyperactivity- Primary Generalized anxiety disorder (CMS/HCC) Generalized anxiety disorder Attention deficit disorder (ADD) without hyperactivity- Primary Generalized anxiety disorder (CMS/HCC) Generalized anxiety disorder Plantar fasciitis of right foot Attention deficit disorder (ADD) without hyperactivity- Primary Generalized anxiety disorder (CMS/HCC) Generalized anxiety disorder [facility] Diagnosis Generalized anxiety disorder (CMS/HCC)- Primary Generalized anxiety disorder Cervical disc herniation Displacement of cervical intervertebral disc without myelopathy Mild intermittent asthma without complication (CMS/HCC) Chronic allergic rhinitis due to pollen Gastroesophageal reflux disease without esophagitis Esophageal reflux Annual physical exam Routine general medical examination at a health care facility Annual physical exam- Primary Routine general medical examination at a health care facility Attention deficit disorder (ADD) without hyperactivity Generalized anxiety disorder (CMS/HCC) Generalized anxiety disorder Attention deficit disorder (ADD) without hyperactivity- Primary Generalized anxiety disorder (CMS/HCC) Generalized anxiety disorder Attention deficit disorder (ADD) without hyperactivity- Primary Generalized anxiety disorder (CMS/HCC) Generalized anxiety disorder Attention deficit disorder (ADD) without hyperactivity- Primary Generalized anxiety disorder (CMS/HCC) Generalized anxiety disorder Plantar fasciitis of right foot Attention deficit disorder (ADD) without hyperactivity- Primary Generalized anxiety disorder (CMS/HCC) Generalized anxiety disorder Anxiety disorder, unspecified Anxiety state (CMS/HCC) Anxiety state, unspecified [facility] Diagnosis Generalized anxiety disorder (CMS/HCC)- Primary Generalized anxiety disorder Cervical disc herniation Displacement of cervical intervertebral disc without myelopathy Mild intermittent asthma without complication (CMS/HCC) Chronic allergic rhinitis due to pollen Gastroesophageal reflux disease without esophagitis Esophageal reflux Annual physical exam Routine general medical examination at a health care facility Annual physical exam- Primary Routine general medical examination at a health care facility Attention deficit disorder (ADD) without hyperactivity Generalized anxiety disorder (CMS/HCC) Generalized anxiety disorder Attention deficit disorder (ADD) without hyperactivity- Primary Generalized anxiety disorder (CMS/HCC) Generalized anxiety disorder Attention deficit disorder (ADD) without hyperactivity- Primary Generalized anxiety disorder (CMS/HCC) Generalized anxiety disorder Attention deficit disorder (ADD) without hyperactivity- Primary Generalized anxiety disorder (CMS/HCC) Generalized anxiety disorder Plantar fasciitis of right foot Attention deficit disorder (ADD) without hyperactivity- Primary Generalized anxiety disorder (CMS/HCC) Generalized anxiety disorder Attention deficit disorder (ADD) without hyperactivity [facility] Diagnosis Generalized anxiety disorder- Primary Generalized anxiety disorder Cervical disc herniation Displacement of cervical intervertebral disc without myelopathy Mild intermittent asthma without complication (HCC) Chronic allergic rhinitis due to pollen Gastroesophageal reflux disease without esophagitis Esophageal reflux Annual physical exam Routine general medical examination at a health care facility Annual physical exam- Primary Routine general medical examination at a health care facility Attention deficit disorder (ADD) without hyperactivity Generalized anxiety disorder Generalized anxiety disorder Attention deficit disorder (ADD) without hyperactivity- Primary Generalized anxiety disorder Generalized anxiety disorder Attention deficit disorder (ADD) without hyperactivity- Primary Generalized anxiety disorder Generalized anxiety disorder Attention deficit disorder (ADD) without hyperactivity- Primary Generalized anxiety disorder Generalized anxiety disorder Plantar fasciitis of right foot Attention deficit disorder (ADD) without hyperactivity- Primary Generalized anxiety disorder Generalized anxiety disorder Attention deficit disorder (ADD) without hyperactivity [facility] Diagnosis Generalized anxiety disorder- Primary Generalized anxiety disorder Cervical disc herniation Displacement of cervical intervertebral disc without myelopathy Mild intermittent asthma without complication (HCC) Chronic allergic rhinitis due to pollen Gastroesophageal reflux disease without esophagitis Esophageal reflux Annual physical exam Routine general medical examination at a health care facility Annual physical exam- Primary Routine general medical examination at a health care facility Attention deficit disorder (ADD) without hyperactivity Generalized anxiety disorder Generalized anxiety disorder Attention deficit disorder (ADD) without hyperactivity- Primary Generalized anxiety disorder Generalized anxiety disorder Attention deficit disorder (ADD) without hyperactivity- Primary Generalized anxiety disorder Generalized anxiety disorder Attention deficit disorder (ADD) without hyperactivity- Primary Generalized anxiety disorder Generalized anxiety disorder Plantar fasciitis of right foot Attention deficit disorder (ADD) without hyperactivity- Primary Generalized anxiety disorder Generalized anxiety disorder Annual physical exam- Primary Routine general medical examination at a health care facility [facility] - Reported* Type Description Date Medical History Anxiety Medical History allergy induced asthma Surgical History knee arthroscopy [facility] Other Summary Purpose Family History No Family History Records FoundNo Family History Records FoundNo Family History Records Found Advance Directives No Advanced Directives Records FoundNo Advanced Directives Records FoundNo Advanced Directives Records Found Additional Source Comments (unrecognized sect ion and content) No Status Records FoundNo Status Records FoundNo Status Records Found INFORMATION SOURCE (unrecogn ized section and content) DATE CREATED AUTHOR 10/21/2021 [facility] DATE CREATED AUTHOR AUTHOR'S ORGANIZ ATION 11/14/2022 [facility] DATE CREATED AUTHOR AUTHOR'S ORGANIZ ATION 11/14/2024 [facility] EPIC REASON FOR VISIT (unrecogniz ed section and content) Reason Comments Med Refill Reason Onset Date Comments Med Refill 07/03/2024 Reason Comments Follow-up 1 m Reason Onset Date Comments Med Refill 09/05/2024 Reason Comments Follow-up Work physical Reason Comments Follow-up 1 M Suture / Staple Removal POSSIBLE REMOVE IF READY Reason Onset Date Comments Med Refill 10/10/2024 Reason Comments Foot Injury Right foot pain Follow-up Having some side eff ects from adhd med Reason Onset Date Comments Med Refill 11/08/2024 Reason Onset Date Comments Med Refill 02/13/2025 Reason Onset Date Comments Med Refill 03/20/2025 Reason Comments Annual Exam wellness Care Teams (unrecognized sec tion and content) Composing Room Supervisor Relationship Specialty Start Date End Date Thomas Zaragoza MD [address] [place] [id number] PCP - General Family Medicine 10/08/23 Composing Room Supervisor Relationship Specialty Start Date End Date Thomas Zaragoza MD [address] [place] [phone] PCP - General Family Medicine 10/08/23 Composing Room Supervisor Relationship Specialty Start Date End Date Thomas Zaragoza MD [address] [place] [phone] PCP - General Family Medicine 10/08/23 Composing Room Supervisor Relationship Specialty Start Date End Date Thomas Zaragoza MD [address] [place] [phone] PCP - General Family Medicine 10/08/23 Composing Room Supervisor Relationship Specialty Start Date End Date Thomas Zaragoza MD [address] [place] [phone] PCP - General Family Medicine 10/08/23 Composing Room Supervisor Relationship Specialty Start Date End Date Thomas Zaragoza MD [address] [place] [phone] PCP - General Family Medicine 10/08/23 Composing Room Supervisor Relationship Specialty Start Date End Date Thomas Zaragoza MD [address] [place] [phone] PCP - General Family Medicine 10/08/23 Composing Room Supervisor Relationship Specialty Start Date End Date Thomas Zaragoza MD [address] [place] [address] PCP - General Family Medicine 10/08/23 Composing Room Supervisor Relationship Specialty Start Date End Date Thomas Zaragoza MD [address] [place] [address] PCP - General Family Medicine 10/08/23 Composing Room Supervisor Relationship Specialty Start Date End Date Thomas Zaragoza MD [address] [place] [address] PCP - General Family Medicine 10/08/23 Composing Room Supervisor Relationship Specialty Start Date End Date Thomas Zaragoza MD [address] [place] [address] PCP - General Family Medicine 10/08/23 Composing Room Supervisor Relationship Specialty Start Date End Date Thomas Zaragoza MD [address] [place] [address] PCP - General Family Medicine 10/08/23 Composing Room Supervisor Relationship Specialty Start Date End Date Thomas Zaragoza MD [address] [place] [address] PCP - General Family Medicine 10/08/23 Composing Room Supervisor Relationship Specialty Start Date End Date Thomas Zaragoza MD [address] [place] [address] PCP - General Family Medicine 10/08/23 Composing Room Supervisor Relationship Specialty Start Date End Date Thomas Zaragoza MD [address] [place] [address] PCP - [facility] 10/08/23 Composing Room Supervisor Relationship Specialty Start Date End Date Thomas Zaragoza MD [address] [place] [address] PCP - [facility] 10/08/23 Composing Room Supervisor Relationship Specialty Start Date End Date Thomas Zaragoza MD [address] [place] [address] PCP - [facility] 10/08/23 FOR RECORDS PERTAINING TO PATIENTS WHO [...] BE BASED ON THE PRIMARY CLINICAL RECORDS. [facility]. provides no warranty or guarantee of the accuracy or completeness of information in this document.
[2025-04-18 11:39] LABS: Hematocrit 45.9 % (42.0-54.0); Hemoglobin 15.4 g/dL (14.0-18.0); Immature Granulocytes Abs Auto 0.04 10^3/uL (0.00-0.03); Immature Granulocytes Pct Auto 0.4 % (0.0-0.5); Lymphocytes Absolute Auto 3.5 10^3/uL (1.2-3.8); Mean Corpuscular HGB Conc 33.6 g/dL (29.9-35.2); Mean Corpuscular Hemoglobin 29.0 pg (25.9-34.0); Mean Corpuscular Volume 86.4 fL (80.0-94.0); Platelet Count 333 10^3/uL (150-450); Red Blood Count 5.31 10^6/uL (4.70-6.10); White Blood Count 9.0 10^3/uL (4.0-11.0)
[2025-04-18 12:28] LABS: Alanine Aminotransferase 26 U/L (16-63); Albumin Globulin Ratio 1.1; Albumin Level 4.1 g/dL (3.4-5.0); Alkaline Phosphatase 100 U/L (46-116); Anion Gap 12.3; Aspartate Amino Transferase 15 U/L (15-37); Blood Urea Nitrogen 23.0 mg/dL (7.0-18.0); Calcium 9.3 mg/dL (8.5-10.1); Carbon Dioxide 27.9 mmol/L (21.0-32.0); Chloride 102 mmol/L (98-107); Cholesterol 202 mg/dL (<=200); Estimated GFR (African America >60 (>=60 mL/min/1.73m^2); Estimated GFR (Non-African Ame >60 (>=60 mL/min/1.73m^2); Globulin 3.9 g/dL; Glucose 99 mg/dL (74-106); HDL Cholesterol 50 mg/dL (40-60); Potassium 4.2 mmol/L (3.5-5.1); Sodium 138 mmol/L (136-145); Thyroid Stimulating Hormone 2.192 uIU/mL (0.358-3.740); Total Protein 8.0 g/dL (6.4-8.2); Triglycerides 92 mg/dL (<=150); VLDL CHOLESTEROL 18.4 mg/dL
== END 2025-04-18 11:10 | disposition home or self-care (01) ==
LOC: LAB 11:12
PROVIDERS: PCP Family Medicine; Visit Provider Family Medicine
DX: Z00.00 Encounter for general adult medical examination without abnormal findings (principal)
CPT/HCPCS: 36415; 80048; 80061; 80076; 83036; 84403; 84443; 85025